=== PATIENT | female | born 1990 ===

== ENCOUNTER 2020-08-13 18:48 | Outpatient (REF) | payer OTHER, SELFPAY | END 2020-08-13 18:49 | disposition home or self-care (01) | LOC: HO.LNP 18:48 | PROVIDERS: Visit Provider Hospitalist | DX: Z20.828 Contact with and (suspected) exposure to other viral communicable diseases (principal) | CPT/HCPCS: 87635 ==

== ENCOUNTER 2020-11-11 13:46 | Outpatient (REF) | payer OTHER, SELFPAY ==
--- NOTE | 2020-11-11 13:50 | XR_ITS ---
EXAMINATION: XR CHEST CLINICAL INFORMATION: Shortness of breath COMPARISON: Chest 12/03/2018 TECHNIQUE: 2 views of the chest were obtained. FINDINGS: The lungs are expanded and clear of acute process. The heart size and pulmonary vascularity is normal. There is moderate dextroscoliosis of dorsal spine. No lytic process. XR/XR chest 2V IMPRESSION: Unremarkable chest exam. Moderate dextroscoliosis dorsal spine.
== END 2020-11-11 13:47 | disposition home or self-care (01) ==
LOC: HO.HMGCX 13:46
PROVIDERS: PCP Nurse Practitioner Family; Visit Provider Internal Medicine
DX: R06.02 Shortness of breath (principal)
CPT/HCPCS: 71046

== ENCOUNTER 2021-12-06 07:30 | Outpatient (REF) | payer OTHER, SELFPAY ==
[2021-12-06 11:19] LABS: MANUAL DIFF FLAG NO
[2021-12-06 11:35] LABS: Basophils Percent Auto 0.7 % (0-2); Eosinophils Absolute Auto 0.1 X10*3/uL (0.0-0.4); Eosinophils Percent Auto 3.1 % (0-4); Hematocrit 41.4 % (37.0-47.0); Hemoglobin 13.8 g/dl (12.0-16.0); Lymphocytes Absolute Auto 2.2 X10*3/uL (1.2-4.9); Lymphocytes Percent Auto 52.7 % (20-40); Mean Corpuscular HGB Conc 33.3 g/dl (31.0-35.0); Mean Corpuscular Hemoglobin 28.7 pg (27.0-33.0); Mean Corpuscular Volume 86.1 fL (80.0-98.0); Mean Platelet Volume 8.9 fL (9.4-12.3); Monocytes Absolute Auto 0.3 X10*3/uL (0.1-1.2); Monocytes Percent Auto 6.1 % (2-11); Neutrophils Absolute Auto 1.6 x10*3/uL (2.0-8.3); Neutrophils Percent Auto 37.4 % (45-73); Platelet Count 271 X10*3/uL (160-400); Red Blood Count 4.81 X10*6/uL (4.20-5.50); Red Cell Distribution Width 12.3 % (11.0-16.0); White Blood Count 4.3 X10*3/uL (4.8-10.8)
[2021-12-06 12:06] LABS: Alanine Aminotransferase 13 U/L (0-31); Albumin Level 4.1 g/dL (3.5-5.0); Alkaline Phosphatase 51 U/L (39-117); Anion Gap 12 (12-20); Aspartate Amino Transferase 12 U/L (5-31); Bilirubin Total 0.6 mg/dL (0.0-1.0); Blood Urea Nitrogen 14 mg/dL (9-16); Calcium 9.8 mg/dL (8.4-10.2); Carbon Dioxide 26 mmol/L (22-29); Chloride 107 mmol/L (96-108); Cholesterol 255 mg/dL; Estimated Glomerular Filt Rate > 60; Glucose Fasting 75 mg/dL (60-99); HDL Cholesterol 66 mg/dL; LDL Cholesterol Calculated 153 mg/dl; Potassium 4.1 mmol/L (3.3-5.1); Sodium 141 mmol/L (135-145); Total Protein 7.3 g/dL (6.5-8.0); Triglycerides 183 mg/dL
[2021-12-06 12:07] LABS: TSH reflex Free T4 1.85 uIU/mL (0.32-4.0)
[2021-12-09 18:36] LABS: Lamotrigine Lamictal 3.4 mcg/mL (4.0-18.0)
== END 2021-12-06 07:31 | disposition home or self-care (01) ==
LOC: HO.HMGCLDS 07:30
PROVIDERS: Visit Provider Nurse Practitioner Family
DX: Z00.00 Encounter for general adult medical examination without abnormal findings (principal); R42 Dizziness and giddiness
CPT/HCPCS: 36415; 80053; 80061; 80175; 84443; 85025

== ENCOUNTER 2022-01-11 07:29 | Outpatient (REF) | payer OTHER, SELFPAY ==
[2022-01-11 11:03] LABS: MANUAL DIFF FLAG NO
[2022-01-11 11:14] LABS: Basophils Percent Auto 0.4 % (0-2); Eosinophils Absolute Auto 0.1 X10*3/uL (0.0-0.4); Hematocrit 39.7 % (37.0-47.0); Hemoglobin 12.9 g/dl (12.0-16.0); Lymphocytes Absolute Auto 2.4 X10*3/uL (1.2-4.9); Lymphocytes Percent Auto 50.4 % (20-40); Mean Corpuscular HGB Conc 32.5 g/dl (31.0-35.0); Mean Corpuscular Hemoglobin 28.3 pg (27.0-33.0); Mean Corpuscular Volume 87.1 fL (80.0-98.0); Mean Platelet Volume 8.9 fL (9.4-12.3); Monocytes Absolute Auto 0.4 X10*3/uL (0.1-1.2); Monocytes Percent Auto 8.8 % (2-11); Neutrophils Absolute Auto 1.7 x10*3/uL (2.0-8.3); Neutrophils Percent Auto 37.4 % (45-73); Platelet Count 243 X10*3/uL (160-400); Red Blood Count 4.56 X10*6/uL (4.20-5.50); Red Cell Distribution Width 12.6 % (11.0-16.0); White Blood Count 4.7 X10*3/uL (4.8-10.8)
[2022-01-11 12:06] LABS: Alanine Aminotransferase 13 U/L (0-31); Albumin Level 3.9 g/dL (3.5-5.0); Alkaline Phosphatase 45 U/L (39-117); Anion Gap 10 (12-20); Aspartate Amino Transferase 13 U/L (5-31); Bilirubin Total 0.5 mg/dL (0.0-1.0); Blood Urea Nitrogen 17 mg/dL (9-16); Calcium 9.3 mg/dL (8.4-10.2); Carbon Dioxide 26 mmol/L (22-29); Chloride 106 mmol/L (96-108); Cholesterol 236 mg/dL; Estimated Glomerular Filt Rate > 60; Glucose Fasting 86 mg/dL (60-99); HDL Cholesterol 69 mg/dL; LDL Cholesterol Calculated 137 mg/dl; Potassium 4.1 mmol/L (3.3-5.1); Sodium 138 mmol/L (135-145); Total Protein 6.6 g/dL (6.5-8.0); Triglycerides 151 mg/dL
== END 2022-01-11 07:30 | disposition home or self-care (01) ==
LOC: HO.HMGCLDS 07:29
PROVIDERS: Visit Provider Nurse Practitioner Family
DX: E78.5 Hyperlipidemia, unspecified (principal)
CPT/HCPCS: 36415; 80053; 80061; 85025

== ENCOUNTER 2022-04-15 08:58 | Outpatient (REF) | payer OTHER, SELFPAY ==
[2022-04-15 10:58] LABS: MANUAL DIFF FLAG NO
[2022-04-15 10:59] LABS: Basophils Percent Auto 0.6 % (0-2); Eosinophils Absolute Auto 0.1 X10*3/uL (0.0-0.4); Eosinophils Percent Auto 2.3 % (0-4); Hematocrit 40.7 % (37.0-47.0); Hemoglobin 13.5 g/dl (12.0-16.0); Imm Gran Abs Auto 0.01 X10*3/uL (0.00-0.03); Imm Gran Pct Auto 0.2 % (0.0-0.4); Lymphocytes Absolute Auto 2.1 X10*3/uL (1.2-4.9); Lymphocytes Percent Auto 40.7 % (20-40); Mean Corpuscular HGB Conc 33.2 g/dl (31.0-35.0); Mean Corpuscular Hemoglobin 28.8 pg (27.0-33.0); Mean Corpuscular Volume 86.8 fL (80.0-98.0); Mean Platelet Volume 8.9 fL (9.4-12.3); Monocytes Absolute Auto 0.4 X10*3/uL (0.1-1.2); Monocytes Percent Auto 7.4 % (2-11); Neutrophils Absolute Auto 2.5 x10*3/uL (2.0-8.3); Neutrophils Percent Auto 48.8 % (45-73); Platelet Count 252 X10*3/uL (160-400); Red Blood Count 4.69 X10*6/uL (4.20-5.50); Red Cell Distribution Width 12.5 % (11.0-16.0); White Blood Count 5.1 X10*3/uL (4.8-10.8)
[2022-04-15 11:27] LABS: Alanine Aminotransferase 15 U/L (0-31); Albumin Level 3.9 g/dL (3.5-5.0); Alkaline Phosphatase 52 U/L (39-117); Anion Gap 11 (12-20); Aspartate Amino Transferase 13 U/L (5-31); Bilirubin Total 0.5 mg/dL (0.0-1.0); Blood Urea Nitrogen 14 mg/dL (9-16); Calcium 9.4 mg/dL (8.4-10.2); Carbon Dioxide 26 mmol/L (22-29); Chloride 106 mmol/L (96-108); Cholesterol 231 mg/dL; Estimated Glomerular Filt Rate > 60; Glucose Fasting 84 mg/dL (60-99); HDL Cholesterol 67 mg/dL; LDL Cholesterol Calculated 136 mg/dl; Potassium 4.6 mmol/L (3.3-5.1); Sodium 138 mmol/L (135-145); Total Protein 6.8 g/dL (6.5-8.0); Triglycerides 142 mg/dL
== END 2022-04-15 08:59 | disposition home or self-care (01) ==
LOC: HO.HMGCLDS 08:58
PROVIDERS: PCP Nurse Practitioner Family; Visit Provider Nurse Practitioner Family
DX: E78.5 Hyperlipidemia, unspecified (principal)
CPT/HCPCS: 36415; 80053; 80061; 84443; 85025

== ENCOUNTER → 2022-05-10 08:54 | Outpatient (BNVA) | payer OTHER, SELFPAY | PROVIDERS: PCP Nurse Practitioner Family; Visit Provider Dietitian, Registered | DX: E66.9 Obesity, unspecified (principal); Z68.28 Body mass index [BMI] 28.0-28.9, adult | CPT/HCPCS: 97802 ==

== ENCOUNTER 2022-07-12 10:16 | Outpatient (REF) | payer OTHER, SELFPAY ==
[2022-07-12 11:09] LABS: MANUAL DIFF FLAG NO
[2022-07-12 11:16] LABS: Basophils Percent Auto 0.7 % (0-2); Eosinophils Absolute Auto 0.1 X10*3/uL (0.0-0.4); Eosinophils Percent Auto 1.4 % (0-4); Hematocrit 39.1 % (37.0-47.0); Hemoglobin 13.1 g/dl (12.0-16.0); Imm Gran Abs Auto 0.01 X10*3/uL (0.00-0.03); Imm Gran Pct Auto 0.2 % (0.0-0.4); Lymphocytes Percent Auto 33.5 % (20-40); Mean Corpuscular HGB Conc 33.5 g/dl (31.0-35.0); Mean Corpuscular Hemoglobin 28.5 pg (27.0-33.0); Mean Corpuscular Volume 85.2 fL (80.0-98.0); Mean Platelet Volume 8.8 fL (9.4-12.3); Monocytes Absolute Auto 0.4 X10*3/uL (0.1-1.2); Neutrophils Absolute Auto 3.4 x10*3/uL (2.0-8.3); Neutrophils Percent Auto 57.2 % (45-73); Platelet Count 273 X10*3/uL (160-400); Red Blood Count 4.59 X10*6/uL (4.20-5.50); Red Cell Distribution Width 12.4 % (11.0-16.0); White Blood Count 5.9 X10*3/uL (4.8-10.8)
[2022-07-12 11:23] LABS: INTERNATIONAL NORM RATIO 0.9 (0.9-1.1)
[2022-07-13 17:36] LABS: Follicle Stimulating Hormone 7.6 mIU/mL; Lutenizing Hormone 7.4 mIU/mL
[2022-07-16 09:41] LABS: Lamotrigine Lamictal 6.1 mcg/mL (4.0-18.0)
[2022-07-20 22:11] LABS: Estradiol Free 2.31 pg/mL; Estradiol, Ultrasensitive 203 pg/mL
== END 2022-07-12 10:17 | disposition home or self-care (01) ==
LOC: HO.HMGCLDS 10:16
PROVIDERS: PCP Nurse Practitioner Family; Visit Provider Nurse Practitioner Family
DX: R23.8 Other skin changes (principal); F33.2 Major depressive disorder, recurrent severe without psychotic features; Z79.899 Other long term (current) drug therapy
CPT/HCPCS: 36415; 80175; 82670; 82672; 82681; 83001; 83002; 85025; 85610; 85730

== ENCOUNTER 2022-08-24 14:56 | Outpatient (REF) | payer OTHER, SELFPAY ==
[2022-08-24 16:52] LABS: MANUAL DIFF FLAG NO
[2022-08-24 16:56] LABS: Basophils Percent Auto 0.6 % (0-2); Eosinophils Absolute Auto 0.1 X10*3/uL (0.0-0.4); Eosinophils Percent Auto 1.7 % (0-4); Hematocrit 37.4 % (37.0-47.0); Hemoglobin 12.6 g/dl (12.0-16.0); Imm Gran Abs Auto 0.01 X10*3/uL (0.00-0.03); Imm Gran Pct Auto 0.2 % (0.0-0.4); Lymphocytes Percent Auto 46.8 % (20-40); Mean Corpuscular HGB Conc 33.7 g/dl (31.0-35.0); Mean Corpuscular Hemoglobin 28.9 pg (27.0-33.0); Mean Corpuscular Volume 85.8 fL (80.0-98.0); Mean Platelet Volume 8.9 fL (9.4-12.3); Monocytes Absolute Auto 0.5 X10*3/uL (0.1-1.2); Monocytes Percent Auto 8.2 % (2-11); Neutrophils Absolute Auto 2.7 x10*3/uL (2.0-8.3); Neutrophils Percent Auto 42.5 % (45-73); Platelet Count 253 X10*3/uL (160-400); Red Blood Count 4.36 X10*6/uL (4.20-5.50); Red Cell Distribution Width 12.5 % (11.0-16.0); White Blood Count 6.4 X10*3/uL (4.8-10.8)
[2022-08-24 17:43] LABS: Alanine Aminotransferase 14 U/L (0-31); Alkaline Phosphatase 57 U/L (39-117); Anion Gap 15 (12-20); Aspartate Amino Transferase 13 U/L (5-31); Bilirubin Total 0.4 mg/dL (0.0-1.0); Blood Urea Nitrogen 18 mg/dL (9-16); Calcium 9.2 mg/dL (8.4-10.2); Carbon Dioxide 25 mmol/L (22-29); Chloride 101 mmol/L (96-108); Cholesterol 223 mg/dL; Estimated Glomerular Filt Rate > 60; Glucose Fasting 91 mg/dL (60-99); HDL Cholesterol 71 mg/dL; LDL Cholesterol Calculated 129 mg/dl; Potassium 4.8 mmol/L (3.3-5.1); Sodium 136 mmol/L (135-145); Total Protein 6.9 g/dL (6.5-8.0); Triglycerides 117 mg/dL
[2022-08-24 18:06] LABS: TSH reflex Free T4 1.12 uIU/mL (0.32-4.0)
[2022-09-01 21:26] LABS: Estradiol Free 2.05 pg/mL; Estradiol, Ultrasensitive 162 pg/mL
== END 2022-08-24 14:57 | disposition home or self-care (01) ==
LOC: HO.HMGCLDS 14:56
PROVIDERS: PCP Nurse Practitioner Family; Visit Provider Nurse Practitioner Family
DX: F33.2 Major depressive disorder, recurrent severe without psychotic features (principal); E28.0 Estrogen excess
CPT/HCPCS: 36415; 80053; 80061; 82670; 82672; 82681; 84443; 85025

== ENCOUNTER 2023-01-08 17:08 | Outpatient (REF) | payer OTHER, SELFPAY ==
[2023-01-08 18:12] LABS: Influenza A PCR NEGATIVE (Negative); Influenza B PCR NEGATIVE (Negative); Resp Syncy Virus RNA Qual PCR NEGATIVE (Negative); SARS COV2 PCR INHOUSE NEGATIVE (Negative)
== END 2023-01-08 17:09 | disposition home or self-care (01) ==
LOC: HO.LNP 17:08
PROVIDERS: Visit Provider Nurse Practitioner Family
DX: Z20.822 Contact with and (suspected) exposure to COVID-19 (principal); R09.89 Other specified symptoms and signs involving the circulatory and respiratory systems
CPT/HCPCS: 0241U

== ENCOUNTER 2023-03-15 14:55 | Outpatient (REF) | payer OTHER, SELFPAY ==
[2023-03-15 16:29] LABS: MANUAL DIFF FLAG NO
[2023-03-15 16:34] LABS: Basophils Percent Auto 0.5 % (0-2); Eosinophils Absolute Auto 0.1 X10*3/uL (0.0-0.4); Eosinophils Percent Auto 1.3 % (0-4); Hematocrit 40.6 % (37.0-47.0); Hemoglobin 13.5 g/dl (12.0-16.0); Imm Gran Abs Auto 0.01 X10*3/uL (0.00-0.03); Imm Gran Pct Auto 0.2 % (0.0-0.4); Lymphocytes Absolute Auto 2.6 X10*3/uL (1.2-4.9); Mean Corpuscular HGB Conc 33.3 g/dl (31.0-35.0); Mean Corpuscular Volume 84.2 fL (80.0-98.0); Mean Platelet Volume 8.8 fL (9.4-12.3); Monocytes Absolute Auto 0.4 X10*3/uL (0.1-1.2); Monocytes Percent Auto 7.2 % (2-11); Neutrophils Percent Auto 48.8 % (45-73); Platelet Count 306 X10*3/uL (160-400); Red Blood Count 4.82 X10*6/uL (4.20-5.50); Red Cell Distribution Width 12.1 % (11.0-16.0); White Blood Count 6.1 X10*3/uL (4.8-10.8)
[2023-03-15 16:51] LABS: Alanine Aminotransferase 15 U/L (0-31); Albumin Level 4.2 g/dL (3.5-5.0); Alkaline Phosphatase 64 U/L (39-117); Anion Gap 12 (12-20); Aspartate Amino Transferase 14 U/L (5-31); Bilirubin Total 0.6 mg/dL (0.0-1.0); Blood Urea Nitrogen 10 mg/dL (9-16); C Reactive Protein 0.28 mg/dL (< or = 0.50); Calcium 9.6 mg/dL (8.4-10.2); Carbon Dioxide 26 mmol/L (22-29); Chloride 104 mmol/L (96-108); Estimated Glomerular Filt Rate > 60; Glucose Random 83 mg/dL (60-115); Potassium 4.2 mmol/L (3.3-5.1); Sodium 138 mmol/L (135-145)
[2023-03-15 17:14] LABS: Erythrocyte Sedimentation Rate 9 MM/HR (0-20)
[2023-03-15 17:22] LABS: Folate 11.5 ng/mL (> or = 4.0); Vitamin B12 850 pg/mL (200-900)
[2023-03-19 23:48] LABS: A. Phagocytphilium DNA,RT-PCR NOT DETECTED (NOT DETECTED); Babesia Microti DNA, RT-PCR NOT DETECTED (NOT DETECTED); Borrelia Miyamotoi,DNA RT-PCR NOT DETECTED (NOT DETECTED); E.Chaffeensis DNA RT-PCR NOT DETECTED (NOT DETECTED); Lyme(Borrelia ssp)DNA RT-PCR NOT DETECTED (NOT DETECTED)
== END 2023-03-15 14:56 | disposition home or self-care (01) ==
LOC: HO.HMGCLDS 14:55
PROVIDERS: PCP Nurse Practitioner Family; Visit Provider Nurse Practitioner Family
DX: M79.10 Myalgia, unspecified site (principal)
CPT/HCPCS: 36415; 80053; 82550; 82607; 82746; 85025; 85652; 86140; 87798; 87801

== ENCOUNTER 2023-04-18 14:53 | Outpatient (REF) | payer OTHER, SELFPAY ==
[2023-04-18 16:33] LABS: MANUAL DIFF FLAG NO
[2023-04-18 17:48] LABS: Basophils Percent Auto 0.5 % (0-2); Eosinophils Absolute Auto 0.1 X10*3/uL (0.0-0.4); Eosinophils Percent Auto 1.4 % (0-4); Hematocrit 38.6 % (37.0-47.0); Hemoglobin 13.1 g/dl (12.0-16.0); Imm Gran Abs Auto 0.01 X10*3/uL (0.00-0.03); Imm Gran Pct Auto 0.2 % (0.0-0.4); Lymphocytes Absolute Auto 2.6 X10*3/uL (1.2-4.9); Lymphocytes Percent Auto 40.5 % (20-40); Mean Corpuscular HGB Conc 33.9 g/dl (31.0-35.0); Mean Corpuscular Hemoglobin 28.7 pg (27.0-33.0); Mean Corpuscular Volume 84.6 fL (80.0-98.0); Mean Platelet Volume 8.8 fL (9.4-12.3); Monocytes Absolute Auto 0.5 X10*3/uL (0.1-1.2); Monocytes Percent Auto 7.1 % (2-11); Neutrophils Absolute Auto 3.2 x10*3/uL (2.0-8.3); Neutrophils Percent Auto 50.3 % (45-73); Platelet Count 306 X10*3/uL (160-400); Red Blood Count 4.56 X10*6/uL (4.20-5.50); Red Cell Distribution Width 12.4 % (11.0-16.0); White Blood Count 6.4 X10*3/uL (4.8-10.8)
[2023-04-18 18:11] LABS: Alanine Aminotransferase 14 U/L (0-31); Albumin Level 3.9 g/dL (3.5-5.0); Alkaline Phosphatase 71 U/L (39-117); Anion Gap 12 (12-20); Aspartate Amino Transferase 13 U/L (5-31); Bilirubin Total 0.5 mg/dL (0.0-1.0); Blood Urea Nitrogen 10 mg/dL (9-16); Calcium 8.9 mg/dL (8.4-10.2); Carbon Dioxide 25 mmol/L (22-29); Chloride 106 mmol/L (96-108); Estimated Glomerular Filt Rate > 60; Glucose Random 84 mg/dL (60-115); Potassium 4.5 mmol/L (3.3-5.1); Sodium 138 mmol/L (135-145)
[2023-04-18 18:27] LABS: TSH reflex Free T4 0.89 uIU/mL (0.32-4.0)
[2023-04-18 19:56] LABS: Monotest Negative (Negative)
== END 2023-04-18 14:54 | disposition home or self-care (01) ==
LOC: HO.HMGCLDS 14:53
PROVIDERS: PCP Nurse Practitioner Family; Visit Provider Nurse Practitioner Family
DX: Z00.00 Encounter for general adult medical examination without abnormal findings (principal); J02.9 Acute pharyngitis, unspecified; E66.9 Obesity, unspecified
CPT/HCPCS: 36415; 80053; 84443; 85025; 86308

== ENCOUNTER 2023-05-04 09:14 | Outpatient (REF) | payer OTHER, SELFPAY ==
[2023-05-04 11:22] LABS: MANUAL DIFF FLAG NO
[2023-05-04 11:27] LABS: Basophils Percent Auto 0.6 % (0-2); Eosinophils Absolute Auto 0.2 X10*3/uL (0.0-0.4); Eosinophils Percent Auto 2.7 % (0-4); Hematocrit 40.6 % (37.0-47.0); Hemoglobin 13.5 g/dl (12.0-16.0); Imm Gran Abs Auto 0.02 X10*3/uL (0.00-0.03); Imm Gran Pct Auto 0.3 % (0.0-0.4); Lymphocytes Absolute Auto 2.4 X10*3/uL (1.2-4.9); Lymphocytes Percent Auto 37.4 % (20-40); Mean Corpuscular HGB Conc 33.3 g/dl (31.0-35.0); Mean Corpuscular Hemoglobin 28.5 pg (27.0-33.0); Mean Corpuscular Volume 85.8 fL (80.0-98.0); Mean Platelet Volume 8.9 fL (9.4-12.3); Monocytes Absolute Auto 0.6 X10*3/uL (0.1-1.2); Monocytes Percent Auto 9.8 % (2-11); Neutrophils Absolute Auto 3.1 x10*3/uL (2.0-8.3); Neutrophils Percent Auto 49.2 % (45-73); Platelet Count 288 X10*3/uL (160-400); Red Blood Count 4.73 X10*6/uL (4.20-5.50); Red Cell Distribution Width 12.6 % (11.0-16.0); White Blood Count 6.3 X10*3/uL (4.8-10.8)
== END 2023-05-04 09:15 | disposition home or self-care (01) ==
LOC: HO.HMGCLDS 09:14
PROVIDERS: PCP Nurse Practitioner Family; Visit Provider Physician Assistant Medical
DX: J02.9 Acute pharyngitis, unspecified (principal)
CPT/HCPCS: 36415; 85025

== ENCOUNTER 2023-05-22 07:10 | Outpatient (AMB) | payer OTHER, SELFPAY ==
--- NOTE | 2023-05-22 07:25 | MHC.PC.OV ---
Intake Visit Reasons: follow up from the walk-in Allergies No Known Allergies [No Known Allergies*] Allergy (Verified 05/04/23 08:40) Tobacco use date assessed: 03/29/23 HPI follow up from the walk-in HPI Details Pt reports that she has started working out again. She reports that she has not been losing weight. Will have pt continue to work on her diet and exercise for 2 months and follow up with me. Denies fever, chills, and dizziness. otitis media and pharyngitis is much better [facility] Medical History Anxiety and depression Pannus, abdominal Seizures Stenosis of left carotid artery Surgical History History of section History of total hysterectomy Family History Father No problems noted. Mother No problems noted. Brother No problems noted. Sister No problems noted. Daughter No problems noted. Son No problems noted. Maternal Grandmother Diabetes mellitus HTN (hypertension) Maternal Grandfather HTN (hypertension) Paternal Grandfather HTN (hypertension) Paternal Grandmother HTN (hypertension) Stroke Social History Housing: House Alcohol intake: never Patient Tobacco Use Status: Never used Tobacco e-Cigarette/Vaping Use: Never Used Second Hand Smoke Exposure: No service: No Current occupational status: employed Current occupation: [employer] Current occupational exposures/hazards: Yes Cognitive needs: No Hearing needs: No Vision needs: No Questionnaire Thrive Questionnaire Date Thrive assessed: 03/29/23 RADHA-7 AMB Questionnaire RADHA-7 Date RADHA - 7 assessed: 03/29/23 Source: Developed by Drs. Arpan Richmond, Alysha Mitchell, Iván Pinto and colleagues, with an educational bharathi from [employer]. Review of Systems Const Reports as per HPI Physical exam (Primary Care) Tobacco/Smoking Status: Tobacco use Status Tobacco use date assessed 03/29/23 03/29/23 16:36 Patient Tobacco Use Status Never used Tobacco 05/04/23 08:39 e-Cigarette/Vaping Use Never Used 03/29/23 16:36 Thrive Assessment: Date of Thrive Assessment Date Thrive assessed 03/29/23 04/12/23 08:45 Const General: cooperative Orientation/consciousness: patient oriented x3 Neuro General: patient oriented x3 Psych Appearance: grossly normal Mental Status: mental status grossly normal Speech and movement: Clear speech present Affect: normal affect Attitude: cooperative Thought process: Normal thought process present Thought content: Normal thought content present Insight: Good insight present (Psych) Judgement: Good judgement present (Psych) Telehealth Telehealth Location of provider rendering services: practice address Location of patient: address on file Patient Identification confirmed using: Name, : Yes Telehealth method: voice only Patient verbally consented to treatment: Yes Patient verbally consented to billing insurance company: Yes Patient informed of any privacy concerns related to visit: Yes Minutes spent on Phone/Video with Pt.: 15 Assessment and Plan Assessment & Plan (1) Pharyngitis: Code(s): J02.9 - Acute pharyngitis, unspecified (2) Otitis media: Code(s): H66.90 - Otitis media, unspecified, unspecified ear Plan The patient agreed to the use of a medical billing coordinator for this encounter. Scribed for DOMINICK Copeland by Olena Almonte medical billing coordinator, on 05/22/2023 at 07:25 EST. Coding Level of Care Code Tele Est Pt Level 3 (61558) Diagnoses Pharyngitis J02.9 Otitis media H66.90
== END 2023-05-22 07:34 | disposition home or self-care (01) ==
PROVIDERS: PCP Nurse Practitioner Family; Visit Provider Nurse Practitioner Family
DX: J02.9 Acute pharyngitis, unspecified (principal); H66.90 Otitis media, unspecified, unspecified ear
CPT/HCPCS: 99442

== ENCOUNTER 2023-07-31 08:19 | Outpatient (AMB) | payer OTHER, SELFPAY ==
[2023-07-31 08:29] VITALS: BP 112/70; PULSE 80; O2SAT 99
--- NOTE | 2023-07-31 08:29 | A.OFFPC_ITS ---
Vital Signs 07/31/23 08:29 Height 5 ft 5 in Weight 180 lb 5 oz BMI 30.0 BP 112/70 Blood Pressure Location Rt brachial Position Sitting Pulse 80 Pulse Source Pulse Oximeter Pulse Oximetry (%) 99 Oxygen Delivery Method Room Air Intake Visit Reasons: 4 month follow up Depression/Anxiety Allergies No Known Allergies [No Known Allergies*] Allergy (Verified 07/31/23 08:31) Medication List - Last Reconciled 07/31/23 by DOMINICK Winter albuterol sulfate 90 mcg/actuation (Ventolin HFA) 1 inh inhalation QID PRN 10 days biotin (Hair, Skin and Nails (biotin)) mcg PO calcium carbonate 1,000 mg PO DAILY epinephrine (EpiPen 2-Carter) 0.3 mg (0.3 mL) IM Q10M PRN 30 days estradiol 2 mg PO BID hydroxyzine HCl 10 mg PO BID PRN 30 days lamotrigine 200 mg PO BID mecobalamin (vitamin B12) mcg PO Tobacco use date assessed: 07/31/23 Dental Screening Dental Screen Date: 07/31/23 Did you have a dental visit in the last 12 months?: Yes Did you have a dental problem in the last 6 months where you did not have access to dental care?: No Was dental information given to patient?: Patient has dentist HPI 4 month follow up Depression/Anxiety HPI Details Anxiety/depression: Pt is taking hydroxyzine 10mg prn for anxiety. She reports that these help. Pt is doing well overall. Denies any SI and HI. Dyslipidemia: Will order labs. [facility] Medical History Anxiety and depression Stenosis of left carotid artery Seizures Pannus, abdominal Surgical History History of total hysterectomy History of section Family History Father No problems noted. Mother No problems noted. Brother No problems noted. Sister No problems noted. Daughter No problems noted. Son No problems noted. Maternal Grandmother Diabetes mellitus HTN (hypertension) Maternal Grandfather HTN (hypertension) Paternal Grandfather HTN (hypertension) Paternal Grandmother HTN (hypertension) Stroke Social History Housing: House Alcohol intake: never Patient Tobacco Use Status: Never used Tobacco e-Cigarette/Vaping Use: Never Used Second Hand Smoke Exposure: No service: No Current occupational status: employed Current occupation: [employer] Current occupational exposures/hazards: Yes Cognitive needs: No Hearing needs: No Vision needs: No Questionnaire Thrive Questionnaire Date Thrive assessed: 03/29/23 RADHA-7 AMB Questionnaire RADHA-7 Date RADHA - 7 assessed: 03/29/23 Source: Developed by Drs. Arpan Richmond, Alysha Mitchell, Iván Pinto and colleagues, with an educational bharathi from [employer]. Review of Systems Const Reports as per HPI Physical exam (Primary Care) Vital Signs: Last Vital Signs Pulse 80 07/31/23 08:29 BP 112/70 07/31/23 08:29 Pulse Ox 99 07/31/23 08:29 Oxygen Delivery Method Room Air 07/31/23 08:29 BMI result Body Mass Index 30.0 Tobacco/Smoking Status: Tobacco use Status Tobacco use date assessed 07/31/23 07/31/23 08:36 Patient Tobacco Use Status Never used Tobacco 07/31/23 08:36 e-Cigarette/Vaping Use Never Used 07/31/23 08:36 Thrive Assessment: Date of Thrive Assessment Date Thrive assessed 03/29/23 07/31/23 08:36 Const General: cooperative Orientation/consciousness: patient oriented x3 Resp Effort & Inspection: normal respiratory effort Auscultation: clear to auscultation bilaterally Cardio Rate: regular rate Rhythm: regular rhythm Heart sounds: S1 normal heart sound present and S2 normal heart sound present Neuro General: patient oriented x3 Psych Appearance: grossly normal Mental Status: mental status grossly normal Speech and movement: Normal speech and movement present Affect: normal affect Attitude: cooperative Thought process: Normal thought process present Thought content: Normal thought content present Insight: Good insight present (Psych) Judgement: Good judgement present (Psych) Assessment and Plan Assessment & Plan (1) Dyslipidemia: Code(s): E78.5 - Hyperlipidemia, unspecified Plan: Labs ordered (2) Depression, major, severe recurrence: Code(s): F33.2 - Major depressive disorder, recurrent severe without psychotic features Plan: Labs ordered (3) Anxiety: Code(s): F41.9 - Anxiety disorder, unspecified Plan: Labs ordered Plan The patient agreed to the use of a medical records library professor for this encounter. Scribed for Tucker Haley RADIOTELEPHONE OPERATOR- by Olena Almonte medical records library professor, on 07/31/2023 at 08:45 EST. Orders: Orders UA CC w/rflx Micro + Cult Today E78.5 - Hyperlipidemia, unspecified, F33.2 - Major depressive disorder, recurrent severe without psychotic features, F41.9 - Anxiety disorder, unspecified Complete Blood Count Auto Diff Today E78.5 - Hyperlipidemia, unspecified, F33.2 - Major depressive disorder, recurrent severe without psychotic features, F41.9 - Anxiety disorder, unspecified Comprehensive [place]. Panel Fast Today E78.5 - Hyperlipidemia, unspecified, F33.2 - Major depressive disorder, recurrent severe without psychotic features, F41.9 - Anxiety disorder, unspecified TSH reflex Free T4 Today E78.5 - Hyperlipidemia, unspecified, F33.2 - Major depressive disorder, recurrent severe without psychotic features, F41.9 - Anxiety disorder, unspecified Lipid Panel Today E78.5 - Hyperlipidemia, unspecified, F33.2 - Major depressive disorder, recurrent severe without psychotic features, F41.9 - Anxiety disorder, unspecified Medications: Refilled hydroxyzine HCl 10 mg PO BID 30 days PRN 60 tabs 0RF anxiety Coding Level of Care Code Est Pt Level 3 (84449) Diagnoses Dyslipidemia E78.5 Depression, major, severe recurrence F33.2 Anxiety F41.9
== END 2023-07-31 09:07 | disposition home or self-care (01) ==
PROVIDERS: PCP Nurse Practitioner Family; Visit Provider Nurse Practitioner Family
DX: E78.5 Hyperlipidemia, unspecified (principal); F33.2 Major depressive disorder, recurrent severe without psychotic features; F41.9 Anxiety disorder, unspecified
CPT/HCPCS: 99213

== ENCOUNTER 2023-09-26 14:55 | Outpatient (REF) | payer OTHER, SELFPAY ==
--- NOTE | ~2023-09-26 | XR_ITS ---
EXAMINATION: XR LUMBOSACRAL SPINE CLINICAL INFORMATION: Low back pain unspecified. COMPARISON: None available. TECHNIQUE: Three views of the lumbosacral spine. FINDINGS: Mild levoscoliosis of the lumbar spine with rotatory component. Straightening of the normal lumbar lordosis. Moderate degenerative changes in the bilateral sacroiliac joints. Facet arthritis in the lower lumbar spine. Multilevel lumbar spondylosis with moderate loss of disc space height at L4-L5. XR/XR lumbar spine 2-3V IMPRESSION: Multilevel lumbar spondylosis.
== END 2023-09-26 14:56 | disposition home or self-care (01) ==
LOC: HO.HMGCX 14:55
PROVIDERS: PCP Nurse Practitioner Family; Visit Provider Nurse Practitioner Family
DX: M54.50 Low back pain, unspecified (principal)
CPT/HCPCS: 72100

== ENCOUNTER 2023-10-08 08:52 | Outpatient (AMB) | payer OTHER, SELFPAY ==
--- NOTE | 2023-10-08 08:55 | A.OFFPC_ITS ---
Vital Signs 10/08/23 08:57 Height 5 ft 5 in Weight 181 lb BMI 30.1 BP 130/90 H Blood Pressure Location Lt brachial Position Sitting Pulse 89 Pulse Source Pulse Oximeter Pulse Oximetry (%) 99 Oxygen Delivery Method Room Air Intake Visit Reasons: Back pain Intake Note: Patient here for back pain that has been present for a long time . Allergies No Known Allergies [No Known Allergies*] Allergy (Verified 10/08/23 08:58) Medication List - Last Reconciled 10/08/23 by DOMINICK Winter albuterol sulfate 90 mcg/actuation (Ventolin HFA) 1 inh inhalation QID PRN 10 days biotin (Hair, Skin and Nails (biotin)) mcg PO calcium carbonate 1,000 mg PO DAILY epinephrine (EpiPen 2-Carter) 0.3 mg (0.3 mL) IM Q10M PRN 30 days estradiol 2 mg PO BID hydroxyzine HCl 10 mg PO BID PRN 30 days lamotrigine 200 mg PO BID mecobalamin (vitamin B12) mcg PO Tobacco use date assessed: 07/31/23 HPI Back pain HPI Details Pt c/o lower back pain. She reports pain down her BLE as well (mostly left lower extrem, anterior and posterior radiculopathy). Recent XR showed multilevel lumbar spondylosis (please see results). Will refer to PT. Denies any signs of cauda equina. If PT does not help, will order a MRI. nOTE: meloxicam also sent [facility] Medical History Anxiety and depression Stenosis of left carotid artery Seizures Pannus, abdominal Surgical History History of total hysterectomy History of section Family History Father No problems noted. Mother No problems noted. Brother No problems noted. Sister No problems noted. Daughter No problems noted. Son No problems noted. Maternal Grandmother Diabetes mellitus HTN (hypertension) Maternal Grandfather HTN (hypertension) Paternal Grandfather HTN (hypertension) Paternal Grandmother HTN (hypertension) Stroke Housing: House Alcohol intake: never Patient Tobacco Use Status: Never used Tobacco e-Cigarette/Vaping Use: Never Used Second Hand Smoke Exposure: No service: No Current occupational status: employed Current occupation: [employer] Current occupational exposures/hazards: Yes Cognitive needs: No Hearing needs: No Vision needs: No Questionnaire Thrive Questionnaire Date Thrive assessed: 03/29/23 RADHA-7 AMB Questionnaire RADHA-7 Date RADHA - 7 assessed: 03/29/23 Source: Developed by Drs. Arpan Richmond, Alysha Mitchell, Iván Pinto and colleagues, with an educational bharathi from [employer]. Review of Systems Const Reports as per HPI Physical exam (Primary Care) Vital Signs: Last Vital Signs Pulse 89 10/08/23 08:57 BP 130/90 H 10/08/23 08:57 Pulse Ox 99 10/08/23 08:57 Oxygen Delivery Method Room Air 10/08/23 08:57 BMI result Body Mass Index 30.1 Tobacco/Smoking Status: Tobacco use Status Tobacco use date assessed 07/31/23 10/08/23 08:57 Patient Tobacco Use Status Never used Tobacco 10/08/23 08:57 e-Cigarette/Vaping Use Never Used 10/08/23 08:57 Thrive Assessment: Date of Thrive Assessment Date Thrive assessed 03/29/23 10/08/23 08:57 Const General: cooperative Orientation/consciousness: patient oriented x3 Resp Effort & Inspection: normal respiratory effort Auscultation: clear to auscultation bilaterally Cardio Rate: regular rate Rhythm: regular rhythm Heart sounds: S1 normal heart sound present and S2 normal heart sound present Neuro General: patient oriented x3 Psych Appearance: grossly normal Mental Status: mental status grossly normal Speech and movement: Normal speech and movement present Affect: normal affect Attitude: cooperative Thought process: Normal thought process present Thought content: Normal thought content present Insight: Good insight present (Psych) Judgement: Good judgement present (Psych) Assessment and Plan Assessment & Plan (1) Pain of back and lower extremity: Code(s): M54.9 - Dorsalgia, unspecified; M79.609 - Pain in unspecified limb Plan: Referred to PT, meloxicam sent Plan The patient agreed to the use of a medical technologist chemistry for this encounter. Scribed for LEEANNA Copeland-RUCHI by Olena Almonte medical technologist chemistry, on 10/08/2023 at 09:10 EST. Orders: Orders PT Evaluation and Treatment Today M54.9 - Dorsalgia, unspecified, M79.609 - Pain in unspecified limb Medications: New meloxicam 15 mg PO DAILY 30 tabs 0RF Coding Level of Care Code Est Pt Level 3 (36067) Diagnoses Pain of back and lower extremity M54.9; M79.609
[2023-10-08 08:57] VITALS: BP 130/90; PULSE 89; O2SAT 99; BMI 30.1
== END 2023-10-08 15:19 | disposition home or self-care (01) ==
PROVIDERS: PCP Nurse Practitioner Family; Visit Provider Nurse Practitioner Family
DX: M54.9 Dorsalgia, unspecified (principal); M79.609 Pain in unspecified limb
CPT/HCPCS: 99213

== ENCOUNTER 2023-11-23 08:18 | Outpatient (AMB) | payer OTHER, SELFPAY ==
--- OUTSIDE RECORDS SUMMARY | 2023-11-23 08:20 | XMS_ITS | Continuity of Care Document ---
Author Name Unknown Organization [facility] e Medicine Address [address] [place] [address], [address]t [address] [place] [address]- Care Team Providers Care Faculty Head Name Role Phone Jaimie CASTRO, Randa Brennan Primary Care Physician Encounter [facility] ACCT R [id number] Date(s): 09/03/20 - 09/10/20 [facility] Reproductive Medicine [address], [address]th [address] [place] [address]- [facility] Attending Physician: Kimi Diop MD Allergies, Adverse Reactions, Alerts Substance Reaction Severity Status Adhesive Bandage Active Bee Stings Active Medications calcium gummies calcium gummies, Refills 0, Maintenance, 09/15/19 7:45:52 EST, Compound Start Date: 09/15/19 Status: Ordered estradiol 1 mg oral tablet 3, tablet, By Mouth, Daily, # 270 tablet, Refills 4, Tot. Refills 4, Maintenance, 09/03/20 10:19:00EDT, Route to Pharmacy Electronically, [facility]/pharmacy #[id number], Renewing Rx for 1 year--keep on file until patient calls for refill, 165.1, cm, 09/03/20 9:4... Start Date: 09/03/20 Status: Ordered LaMICtal 200 mg oral tablet 1 tablet = 200 mg, By Mouth, 2 times a day, dose increase early refill, # 60 tablet, 11 Refills, Maintenance, 10/07/19 8:49:33 EST, Tablet Start Date: 10/07/19 Status: Ordered Problem List Condition Effective Dates Status Health Status Inform ant Obesity(Confirmed) Active Premenstrual dysphoric disorder(Confirmed) Active Procedures Procedure Date Related Diagnosis Body Site Status MELODY BSO - Total abdominal hy sterectomy and bilateral salpingo-oophorectomy 09/28/15 Completed Bilateral tubal ligation 1 08/04/13 Completed 1@ time of Vital Signs Most recent to oldest [Reference Range]: 1 Height 165.10 cm (09/03/20 9:40 AM) Weight 78.6 kg (09/03/20 9:40 AM) Pulse Rate [55-90 bpm] 100 bpm *H* (09/03/20 9:40 AM) Body Mass Index [18.5-24.99] 28.84 *H* (09/03/20 9:40 AM) Blood Pressure [90-138/55-84 mm Hg] 123/ 84mm Hg (09/03/20 9:40 AM) Blood pressure sites Arm, right (09/03/20 9:40 AM) Weight Obtained Via Standing scale (09/03/20 9:40 AM) Social History Social History Type Response Smoking Status Never smoker entered on: 05/10/15 Sex
--- OUTSIDE RECORDS SUMMARY | 2023-11-23 08:20 | XMS_ITS | Continuity of Care Document ---
Author Name Unknown Organization [facility] e Medicine Address [address] [place] [address], [address]t [address] [place] [address]- Care Team Providers Care Filterer Name Role Phone Randa Etienne NP Primary Care Physician Encounter [facility] Date(s): 11/19/20 - 12/19/20 [facility] Reproductive Medicine [address] [place] [address], [address]th [address] [place] [id number] Allergies, Adverse Reactions, Alerts Substance Reaction Severity Status Adhesive Bandage Active Bee Stings Active Medications calcium gummies calcium gummies, Refills 0, Maintenance, 09/15/19 7:45:52 EST, Compound Start Date: 09/15/19 Status: Ordered Diflucan 150 mg oral tablet 1 tablet = 150 mg, By Mouth, Once, MAY REPEAT IN 3 DAYS IF NO RELIEF, # 2 tablet, 0 Refills, Soft Stop, 10/12/20 12:19:00 EST, Tablet, [facility]/pharmacy #[id number], Partial fill upon patient request if the prescription is for a schedule II opioid drug., 165.1,... Start Date: 10/12/20 Status: Ordered estradiol 1 mg oral tablet 3, tablet, By Mouth, Daily, # 270 tablet, Refills 4, Tot. Refills 4, Maintenance, 09/03/20 10:19:00EDT, Route to Pharmacy Electronically, [facility]/pharmacy #[id number], Renewing Rx for 1 year--keep on file [...] ant Obesity(Confirmed) Active Premenstrual dysphoric disorder(Confirmed) Active Social History Social History Type Response Smoking Status Never smoker entered on: 05/10/15 Sex
--- OUTSIDE RECORDS SUMMARY | 2023-11-23 08:20 | XMS_ITS | Continuity of Care Document ---
Author Name Unknown Organization [facility] ter Address [address] [place] [address]- Care Team Providers Care Big Machine Consultant Name Role Phone Jaimie CASTRO, Randa Brennan Primary Care Physician [phone] [place] [facility] Date(s): 11/18/19 - 11/23/[address] [address]- [facility] Discharge Disposition: A-D/C Home Attending Physician: Stuart Tellez MD Admitting Physician: Abran Buchanan MD Referring Physician: Abran Buchanan MD Allergies, Adverse Reactions, Alerts Substance Reaction Severity Status Adhesive Bandage Active Medications calcium gummies calcium gummies, Refills 0, Maintenance, 09/15/19 7:45:52 EST, Compound Start Date: 09/15/19 Status: Ordered Estrace 2 mg oral tablet 1 tablet = 2 mg, By Mouth, Daily, # 30 tablet, 0 Refills, Maintenance, 07/05/16 8:41:50, Tablet Start Date: 07/05/16 Status: Ordered estradiol 1 mg oral tablet 2 mg, 2, tablet, By Mouth, Daily, May try dividing the dose, # 60 tablet, Refills 11, Tot. Refills 11, Maintenance, 10/07/19 16:40:37 EST, Route to Pharmacy Electronically, [id number], [facility]/pharmacy #[id number] Start Date: 10/07/19 Status: Ordered LaMICtal 200 mg oral tablet 1 tablet = 200 mg, By Mouth, 2 times a day, dose increase early refill, # 60 tablet, 11 Refills, Maintenance, 10/07/19 8:49:33 EST, Tablet Start Date: 10/07/19 Status: Ordered Lamictal 400mg Lamictal 400mg, Refills 0, Maintenance, 09/15/19 7:46:20 EST, Compound Start Date: 09/15/19 Status: Ordered Nortriptyline Liquid By Mouth, takes one ml mixed with 9ml takes 0.7 cc after., 0 Refills, Maintenance, 04/10/17 7:55:19 Start Date: 04/10/17 Status: Ordered Problem List Condition Effective Dates Status Health Status Inform ant Obesity(Confirmed) Active Premenstrual dysphoric disorder(Confirmed) Active Vital Signs Most recent to oldest [Reference Range]: 1 2 3 Height 165.10 cm (11/23/19 7:29 AM) 165.10 cm (11/22/19 11:56 PM) 165.10 cm (11/22/19 8:06 PM) Oxygen Saturation [94-100 %] 98 % (11/23/19 7:29 AM) 100 % (11/22/19 11:56 PM) 100 % (11/22/19 8:06 PM) Pulse Rate [55-90 bpm] 72 bpm (11/23/19 7:29 AM) 81 bpm (11/22/19 11:56 PM) 79 bpm (11/22/19 8:06 PM) Blood Pressure [90-138/55-84 mm Hg] 108/57mm Hg (11/23/19 7:29 AM) 127/77mm Hg (11/22/19 11:56 PM) 114/69mm Hg (11/22/19 8:06 PM) Respiratory Rate [16-30 br/min] 17 br/min (11/23/19 10:51 AM) 17 br/min (11/23/19 7:29 AM) 18 br/min (11/22/19 11:56 PM) Temperature [96.8-100.4 DegF] 97.1 DegF (11/23/19 7:29 AM) 98.8 DegF (11/22/19 11:56 PM) 98.7 DegF (11/22/19 8:06 PM) Liters per Minute 0 L/min (11/19/19 3:32 PM) 0 L/min (11/19/19 10:56 AM) 0 L/min (11/19/19 7:54 AM) Mode of Delivery (Oxygen) Room air (11/23/19 7:29 AM) Room air (11/22/19 11:56 PM) Room air (11/22/19 8:06 PM) Blood pressure sites Arm, left (11/23/19 7:29 AM) Arm, right (11/22/19 11:56 PM) Arm, left (11/22/19 8:06 PM) Temperature Route Temporal (11/23/19 7:29 AM) Oral (11/22/19 11:56 PM) Oral (11/22/19 8:06 PM) Sensory deficits None (11/18/19 8:24 AM) Mobility assistance Independent (11/18/19 8:24 AM) Social History Social History Type Response Smoking Status Never smoker entered on: 09/28/15 Sex
--- OUTSIDE RECORDS SUMMARY | 2023-11-23 08:20 | XMS_ITS | Continuity of Care Document ---
Author Name Unknown Organization [facility] e Medicine Address Unknown Care Team Providers Care Dock Pumper Name Role Phone Sudha CASTRO, Tucker Finch Primary Care Physician Encounter [facility] Date(s): 04/07/22 - 05/07/22 [facility] Reproductive Medicine Attending Physician: Hugh Martinez Admitting Physician: Hugh Martinez Referring Physician: AdmtrHugh Allergies, Adverse Reactions, Alerts Substance Reaction Severity Status Adhesive Bandage Active Bee Stings Active Medications calcium gummies calcium gummies, Refills 0, Maintenance, 09/15/19 7:45:52 EST, Compound Start Date: 09/15/19 Status: Ordered Diflucan 150 mg oral tablet 1 tablet = 150 mg, By Mouth, Once, MAY REPEAT IN 3 DAYS IF NO RELIEF, # 2 tablet, 0 Refills, Soft Stop, 10/12/20 12:19:00 EST, Tablet, [facility]/pharmacy #[id number], Partial fill upon patient request if the prescription is for a schedule II opioid drug., 165.1,... Start Date: 10/12/20 Status: Ordered estradiol 1 mg oral tablet 4 mg, 4, tablet, By Mouth, Daily, # 480 tablet, Refills 4, Tot. Refills 4, Maintenance, 03/16/21 17:19:00 EDT, Route to Pharmacy Electronically, [facility]/pharmacy #[id number], Renewing Rx for 1 year--keep on file until patient calls for refill, 165.1, cm, 09/03/... Start Date: 03/16/21 Status: Ordered estradiol 2 mg oral tablet 1 tablet = 2 mg, By Mouth, 2 times a day, # 60 capsule, 11 Refills, Maintenance, 02/17/22 14:01:00 EDT, Tablet, [facility]/pharmacy #[id number], Partial fill upon patient request if the prescription is for a schedule II opioid drug., 165.1, cm, 02/17/22 13:38:00 E... Start Date: 02/17/22 Status: Ordered gabapentin 300 mg oral capsule 300 mg, 1, capsule, By Mouth, Daily, # 30 capsule, Refills 11, Tot. Refills 11, Maintenance, 02/17/22 14:01:00 EDT, Route to Pharmacy Electronically, [facility]/pharmacy #[id number], Partial fill upon patient request if the prescription is for a schedule II opioid... Start Date: 02/17/22 Status: Ordered LaMICtal 200 mg oral tablet [...]
--- OUTSIDE RECORDS SUMMARY | 2023-11-23 08:20 | XMS_ITS | Continuity of Care Document ---
Author Name Unknown Organization [facility] e Medicine Address Unknown Care Team Providers Care Wool Hat Forming Machine Tender Name Role Phone Sudha CASTRO, Tucker Finch Primary Care Physician [place] [facility] [place]): 02/17/22 - 03/19/22 [facility] Reproductive Medicine Attending Physician: Hugh Martinez Admitting Physician: Hugh Martinez Referring Physician: Admtr ArQueta Allergies, Adverse Reactions, Alerts Substance Reaction Severity Status Adhesive Bandage Active Bee Stings Active Medications calcium gummies calcium gummies, Refills 0, Maintenance, 09/15/19 7:45:52 EST, Compound Start Date: 09/15/19 Status: Ordered Diflucan 150 mg oral tablet 1 tablet = 150 mg, By Mouth, Once, MAY REPEAT IN 3 DAYS IF NO RELIEF, # 2 tablet, 0 Refills, Soft Stop, 10/12/20 12:19:00 EST, Tablet, [facility]/pharmacy #[id number], Partial fill upon patient request if the prescription is for a schedule II opioid drug., 165.1,... Start Date: 10/12/20 Status: Ordered estradiol 1 mg oral tablet 4 mg, 4, tablet, By Mouth, Daily, # 480 tablet, Refills 4, Tot. Refills 4, Maintenance, 03/16/21 17:19:00 EDT, Route to Pharmacy Electronically, [facility]/pharmacy #[id number], Renewing Rx for 1 year--keep on file until patient calls for refill, 165.1, cm, 09/03/... Start Date: 03/16/21 Status: Ordered estradiol 2 mg oral tablet 1 tablet = 2 mg, By Mouth, 2 times a day, # 60 capsule, 11 Refills, Maintenance, 02/17/22 14:01:00 EDT, Tablet, [facility]/pharmacy #[id number], Partial fill upon patient request if the prescription is for a schedule II opioid drug., 165.1, cm, 02/17/22 13:38:00 E... Start Date: 02/17/22 Status: Ordered gabapentin 300 mg oral capsule 300 mg, 1, capsule, By Mouth, Daily, # 30 capsule, Refills 11, Tot. Refills 11, Maintenance, 02/17/22 14:01:00 EDT, Route to Pharmacy Electronically, [facility]/pharmacy #[id number], Partial fill upon patient request if [...]
--- OUTSIDE RECORDS SUMMARY | 2023-11-23 08:20 | XMS_ITS | Continuity of Care Document ---
Author Name Unknown Organization [facility] e Medicine Address [address] [place] [address], 4t h [address] [place] [address]- Care Team Providers Care Bee Farmer Name Role Phone Sudha CASTRO, Tucker Finch Primary Care Physician [phone] Encounter [facility] [place] Date(s): 02/28/23 - 03/30/23 [facility] Reproductive Medicine [address] [place] [address], 4th [address] [place] [id number] Allergies, Adverse Reactions, Alerts Substance Reaction Severity Status Adhesive Bandage Active Bee Stings Active Medications calcium gummies calcium gummies, Refills 0, Maintenance, 09/15/19 7:45:52 EST, Compound Start Date: 09/15/19 Status: Ordered Diflucan 150 mg oral tablet 1 tablet = 150 mg, By Mouth, Once, MAY REPEAT IN 3 DAYS IF NO RELIEF, # 2 tablet, 0 Refills, Soft Stop, 10/12/20 12:19:00 EST, Tablet, [id number], Partial fill upon patient request if the prescription is for a schedule II opioid drug., 165.1,... Start Date: 10/12/20 Status: Ordered estradiol 2 mg oral tablet 1 tablet, By Mouth, 2 times a day, # 60 tablet, 11 Refills, Maintenance, 02/27/23 13:13:00 EDT, [id number], 165.1, cm, 02/17/22 13:38:00 EDT, Height Start Date: 02/27/23 Status: Ordered gabapentin 300 mg oral capsule 300 mg, 1, capsule, By Mouth, Daily, # 30 capsule, Refills 11, Tot. Refills 11, Maintenance, 02/17/22 14:01:00 EDT, Route to Pharmacy Electronically, [id number], Partial fill upon patient request if the prescription is for a schedule II opioid... Start Date: 02/17/22 Status: Ordered LaMICtal 200 mg oral tablet 1 tablet = 200 mg, By Mouth, 2 times a day, dose increase early refill, # 60 tablet, 11 Refills, Maintenance, 10/07/19 8:49:33 EST, Tablet Start Date: 10/07/19 Status: Ordered Problem List Condition Confirmation Course Effective Dates Status [facility] Informant Obesity Confirmed Active Premenstrual dysphoric disorder Confirmed Active Social History Social History Type Response Smoking Status Never smoker entered on: 05/10/15 Sex Patient Care team information Care Team Personnel Name: Tucker Haley NP Position: Reference Physician Member Role: PCP Address: Address: [address] [place] [address]- Name: Mayela Fitzpatrick RN Position: S RN Member Role: Primary Care Nurse Name: Lisette Bal RN Position: S RN Member Role: Primary Care Nurse Name: Barrett Ji RN Position: S RN Member Role: Primary Care Nurse Care Team Related Persons Name: GURDEEP MEDINA Address: [address] [address]
--- OUTSIDE RECORDS SUMMARY | 2023-11-23 08:20 | XMS_ITS | Continuity of Care Document ---
Author Name Unknown Organization [facility] e Medicine Address [address] [place] [address], 4t [address] [place] [address]- Care Team Providers Care Pressure Testing Technician Name Role Phone Jaimie CASTRO, Randa Brennan Primary Care Physician [place] [facility] [place] 07/12/20 - 08/11/20 [facility] Reproductive Medicine [address] [place] [address], 4th Floor [address] [place] [address]- [facility] Allergies, Adverse Reactions, Alerts Substance Reaction Severity Status Adhesive Bandage Active Medications calcium gummies calcium gummies, Refills 0, Maintenance, 09/15/19 7:45:52 EST, Compound Start Date: 09/15/19 Status: Ordered Diflucan 150 mg oral tablet 1 tablet = 150 mg, By Mouth, Once, MAY REPEAT IN 3 DAYS IF NO RELIEF, # 2 tablet, 0 Refills, Soft Stop, 04/01/20 9:24:00 EDT, Tablet, [facility]/pharmacy #[id number], 165.1, cm, 01/19/20 9:48:00 EDT, Height Start Date: 04/01/20 Status: Ordered estradiol 1 mg oral tablet 3, tablet, By Mouth, Daily, # 90 tablet, Refills 1, Tot. Refills 1, Maintenance, 08/06/20 13:32:00 EDT, Route to Pharmacy Electronically, [facility]/pharmacy #[id number], 165.1, cm, 01/19/20 9:48:00 EDT, Height Start Date: 08/06/20 Status: Ordered LaMICtal 200 mg oral tablet [...]
--- OUTSIDE RECORDS SUMMARY | 2023-11-23 08:20 | XMS_ITS | Continuity of Care Document ---
Author Name Unknown Organization [facility] e Medicine Address [address] [facility], 4t [address] [place] [address]- Care Team Providers Care Retail Analyst Name Role Phone Jaimie CASTRO, Randa Brennan Primary Care Physician En[place] [facility] [place] Date(s): 08/16/20 - 09/15/20 [facility] Reproductive Medicine [address] [facility], 4th Floor [address] [place] [address]- [facility] Allergies, Adverse Reactions, Alerts Substance Reaction Severity Status Adhesive Bandage Active Bee Stings Active Medications calcium gummies calcium gummies, Refills 0, Maintenance, 09/15/19 7:45:52 EST, Compound Start Date: 09/15/19 Status: Ordered estradiol 1 mg oral tablet 3, tablet, By Mouth, Daily, # 270 tablet, Refills 4, Tot. Refills 4, Maintenance, 09/03/20 10:19:00EDT, Route to Pharmacy Electronically, [facility]/pharmacy #[id number], Renewing Rx for 1 year--keep on file [...]
--- OUTSIDE RECORDS SUMMARY | 2023-11-23 08:20 | XMS_ITS | Continuity of Care Document ---
Author Name Unknown Organization [facility] e Medicine Address [address] [place] [address], 4t h [address] [place] [address]- Care Team Providers Care Woolen Tester Name Role Phone Jaimie CASTRO, Randa Brennan Primary Care Physician Encounter [facility] [place] Date(s): 10/12/20 - 11/11/20 [facility] Reproductive Medicine [address] [place] [address], 4th [address] [place] [id number] Allergies, Adverse Reactions, Alerts Substance Reaction [...] Refills, Soft Stop, 10/12/20 12:19:00 EST, Tablet, [facility]/pharmacy #[id number], Partial fill upon patient request if the prescription is for a schedule II opioid drug., 165.1,... Start Date: 10/12/20 Status: Ordered estradiol 1 mg oral tablet 3, tablet, By Mouth, Daily, # 270 tablet, Refills 4, Tot. Refills 4, Maintenance, 09/03/20 10:19:00EDT, Route to Pharmacy Electronically, [facility]/pharmacy #[id number], Renewing Rx for 1 year--keep [...]
--- OUTSIDE RECORDS SUMMARY | 2023-11-23 08:20 | XMS_ITS | Continuity of Care Document ---
Author Name Unknown Organization [facility] e Medicine Address Unknown Care Team Providers Care Element Setter Name Role Phone Jaimie CASTRO, Randa Primary Care Physician En[place] [facility] [place] Date(s): 07/07/21 - 08/06/21 [facility] Reproductive Medicine Allergies, Adverse Reactions, Alerts Substance Reaction Severity Status Adhesive Bandage Active Bee Stings Active Medications calcium gummies calcium gummies, Refills 0, Maintenance, 09/15/19 7:45:52 EST, Compound Start Date: 09/15/19 Status: Ordered Diflucan 150 mg oral tablet 1 tablet = 150 mg, By Mouth, Once, MAY REPEAT IN 3 DAYS IF NO RELIEF, # 2 tablet, 0 Refills, Soft Stop, 10/12/20 12:19:00 EST, Tablet, [facility]/pharmacy #[id number], Partial fill upon patient request if the prescription is for a schedule II opioid drug., 165.1,... Start Date: 10/12/20 Status: Ordered estradiol 1 mg oral tablet 4 mg, 4, tablet, By Mouth, Daily, # 480 tablet, Refills 4, Tot. Refills 4, Maintenance, 03/16/21 17:19:00 EDT, Route to Pharmacy Electronically, [facility]/pharmacy #[id number], Renewing Rx for 1 year--keep on file until patient calls for refill, 165.1, cm, 09/03/... Start Date: 03/16/21 Status: Ordered LaMICtal 200 mg oral tablet [...]
--- OUTSIDE RECORDS SUMMARY | 2023-11-23 08:20 | XMS_ITS | Continuity of Care Document ---
Author Name Unknown Organization [facility] e Medicine Address [address] [place] [address], 4t h Floor [address] [place] [address]- Care Team Providers Care Drill Foreman Name Role Phone Sudha CASTRO, Tucker Finch Primary Care Physician En[place] [facility] [place] Date(s): 02/22/23 - 03/24/23 [facility] Reproductive Medicine [address] [place] [address], 4th [address] [place] [id number] Allergies, Adverse Reactions, Alerts Substance Reaction Severity [...] 11 Refills, Maintenance, 02/27/23 13:13:00 EDT, [id number], 165.1, cm, 02/17/22 13:38:00 EDT, Height Start [...] Reference Physician Member Role: PCP Address: Address: [address] [place] [address]- Name: Mayela Fitzpatrick RN Position: S RN Member Role: Primary Care Nurse Name: Lisette Bal RN Position: S RN Member Role: Primary Care Nurse Name: Barrett Ji RN Position: S RN Member Role: Primary Care Nurse Care Team Related Persons Name: GURDEEP MEDINA Address: [address] [address]
--- OUTSIDE RECORDS SUMMARY | 2023-11-23 08:20 | XMS_ITS | Continuity of Care Document ---
Author Name Unknown Organization [facility] e Medicine Address Unknown Care Team Providers Care Order Taker Name Role Phone Sudha CASTRO, Tucker Finch Primary Care Physician Encounter [facility] [place] Date(s): 02/17/22 - 02/24/22 [facility] Reproductive Medicine Attending Physician: Kimi Diop MD Allergies, Adverse [...] 03/16/21 17:19:00 EDT, Route to [facility]acy Electronically, [id number], Renewing Rx for 1 year--keep on file until patient calls for refill, 165.1, cm, 09/03/... Start Date: 03/16/21 Status: Ordered estradiol 2 mg oral tablet 1 tablet = 2 mg, By Mouth, 2 times a day, # 60 capsule, 11 Refills, Maintenance, 02/17/22 14:01:00 EDT, Tablet, [id number], Partial fill upon patient request if the prescription is for a schedule II opioid drug., 165.1, cm, 02/17/22 13:38:00 E... Start Date: 02/17/22 Status: Ordered gabapentin 300 mg oral capsule 300 mg, 1, capsule, By Mouth, Daily, # 30 capsule, Refills 11, Tot. Refills 11, Maintenance, 02/17/22 14:01:00 EDT, Route to Pharmacy Electronically, [facility]/pharmacy #[id number], Partial fill upon patient request [...] oldest [Reference Range]: 1 Height 165.10 cm (02/17/22 1:38 PM) Weight 79.1 kg (02/17/22 1:38 PM) Pulse Rate [55-90 bpm] 81 bpm (02/17/22 1:38 PM) Body Mass Index [18.5-24.99] 29.02 *H* (02/17/22 1:38 PM) Blood Pressure [90-138/55-84 mm Hg] 126/ 81mm Hg (02/17/22 1:38 PM) Blood pressure sites Arm, right (02/17/22 1:38 PM) Weight Obtained Via Standing scale (02/17/22 1:38 PM) Social History Social History Type Response Smoking Status Never smoker entered on: 05/10/15 Sex
--- OUTSIDE RECORDS SUMMARY | 2023-11-23 08:21 | XMS_ITS | Continuity of Care Document ---
Author Name Unknown Organization [facility] e Medicine Address [address] [place] [address], 4t [address] [place] [address]- Care Team Providers Care Biotechnologist Name Role Phone Jaimie CASTRO, Randa Brennan Primary Care Physician [place] [facility] [place](s): 08/02/20 - 09/01/20 [facility] Reproductive Medicine [address] [place] [address], 4th [address] [place] [address]- [facility] Allergies, Adverse Reactions, Alerts Substance Reaction Severity Status Adhesive Bandage Active Medications calcium gummies calcium gummies, Refills 0, Maintenance, 09/15/19 7:45:52 EST, Compound Start Date: 09/15/19 Status: Ordered Diflucan 150 mg oral tablet 1 tablet = 150 mg, By Mouth, Once, MAY REPEAT IN 3 DAYS IF NO RELIEF, # 2 tablet, 0 Refills, Soft Stop, 04/01/20 9:24:00 EDT, Tablet, [facility]/pharmacy #[id number], 165.1, cm, 01/19/20 9:48:00 EDT, Height Start Date: 04/01/20 Status: Ordered estradiol 1 mg oral tablet 3, tablet, By Mouth, Daily, # 90 tablet, Refills 1, Tot. Refills 1, Maintenance, 08/16/20 9:25:00 EDT, Route to Pharmacy Electronically, [facility]/pharmacy #[id number], 165.1, cm, 01/19/20 9:48:00 EDT, Height Start Date: 08/16/20 Status: Ordered LaMICtal 200 mg oral tablet [...]
--- OUTSIDE RECORDS SUMMARY | 2023-11-23 08:21 | XMS_ITS | Continuity of Care Document ---
Author Name Unknown Organization [facility] e Medicine Address Unknown Care Team Providers Care Shellfish Checker Name Role Phone Sudha CASTRO, Tucker Finch Primary Care Physician En[place] [facility] [place] Date(s): 02/15/22 - 05/07/22 [facility] Reproductive Medicine Attending Physician: Kimi Diop MD Referring Physician: Jaimie CASTRO, Randa Brennan Allergies, Adverse Reactions, Alerts Substance Reaction Severity Status Adhesive Bandage Active Bee Stings Active Medications calcium gummies calcium gummies, Refills 0, Maintenance, 09/15/19 7:45:52 EST, Compound Start Date: 09/15/19 Status: Ordered Diflucan 150 mg oral tablet 1 tablet = 150 mg, By Mouth, Once, MAY REPEAT IN 3 DAYS IF NO RELIEF, # 2 tablet, 0 Refills, Soft Stop, 10/12/20 12:19:00 EST, Tablet, [facility]/pharmacy #[id number], Partial fill upon patient request [...] 11 Refills, Maintenance, 02/17/22 14:01:00 EDT, Tablet, [facility]/pharmacy #[id number], Partial fill upon patient request if the prescription is for a schedule II opioid drug., 165.1, cm, 02/17/22 13:38:00 E... Start Date: 02/17/22 Status: Ordered gabapentin 300 mg oral capsule 300 mg, 1, capsule, By Mouth, Daily, # 30 capsule, Refills 11, Tot. Refills 11, Maintenance, 02/17/22 14:01:00 EDT, Route to Pharmacy Electronically, [facility]/pharmacy #[id number], Partial fill upon patient request [...]
--- OUTSIDE RECORDS SUMMARY | 2023-11-23 08:21 | XMS_ITS | Continuity of Care Document ---
Author Name Unknown Organization [facility] e Medicine Address [address] [place] [address], 4t [address] [place] [address]- Care Team Providers Care Comprehensive Ophthalmologist Name Role Phone Sudha CASTRO, Tucker Finch Primary Care Physician [phone] [place] [facility] [place](s): 02/22/23 - 03/24/23 [facility] Reproductive Medicine [address] [place] [address], 4th [address] [place] [address] Allergies, Adverse Reactions, Alerts Substance Reaction [...] 11 Refills, Maintenance, 02/27/23 13:13:00 EDT, [id number], 165.1, cm, 02/17/22 13:38:00 EDT, Height Start [...] Reference Physician Member Role: PCP Address: Address: [address] [place] [address]- Name: Mayela Fitzpatrick RN Position: S RN Member Role: Primary Care Nurse Name: Lisette Bal RN Position: S RN Member Role: Primary Care Nurse Name: Barrett Ji RN Position: S RN Member Role: Primary Care Nurse Care Team Related Persons Name: GURDEEP MEDINA Address: [address] [address]
--- OUTSIDE RECORDS SUMMARY | 2023-11-23 08:21 | XMS_ITS | Continuity of Care Document ---
Author Name Unknown Organization [facility] e Medicine Address Unknown Care Team Providers Care Red Mud Thickener Operator Name Role Phone Sudha CASTRO, Tucker Finch Primary Care Physician [phone] [place] [facility] [place]13[place] 03/15/22 [facility] Reproductive Medicine Allergies, Adverse Reactions, Alerts [...] 02/17/22 14:01:00 EDT, Route to Pharmacy Electronically, [facility]/pharmacy #[id number], Partial fill upon patient request if the [...]
--- OUTSIDE RECORDS SUMMARY | 2023-11-23 08:21 | XMS_ITS | Continuity of Care Document ---
Author Name Unknown Organization [facility] e Medicine Address [address] [place] [address], 4t [address] Floor [address] [place] [address]- Care Team Providers Care Water Plant Pump Operator Name Role Phone Sudha CASTRO, Tucker Finch Primary Care Physician En[place] [facility] [place] Date(s): 08/07/22 - 09/06/22 [facility] Reproductive Medicine [address] [facility], 4th Floor [address] [place] [address] Allergies, Adverse Reactions, Alerts Substance [...] Refills, Soft Stop, 10/12/20 12:19:00 EST, Tablet, [facility]/pharmacy #[id number], Partial fill upon patient request if the prescription is for a schedule II opioid drug., 165.1,... Start Date: 10/12/20 Status: Ordered estradiol 1 mg oral tablet 4 mg, 4, tablet, By Mouth, Daily, # 480 tablet, Refills 4, Tot. Refills 4, Maintenance, 03/16/21 17:19:00 EDT, Route to Pharmacy Electronically, [facility]/pharmacy #[id number], Renewing Rx for 1 year--keep on file until patient calls for refill, 165.1, cm, 09/03/... Start Date: 03/16/21 Status: Ordered estradiol 2 mg oral tablet 1 tablet = 2 mg, By Mouth, 2 times a day, # 60 capsule, 11 Refills, Maintenance, 02/17/22 14:01:00 EDT, Tablet, [facility]/pharmacy #[id number], Partial fill upon patient request if the prescription is for a schedule II opioid drug., 165.1, cm, 02/17/22 13:38:00 E... Start Date: 02/17/22 Status: Ordered gabapentin 300 mg oral capsule 300 mg, 1, capsule, By Mouth, Daily, # 30 capsule, Refills 11, Tot. Refills 11, Maintenance, 02/17/22 14:01:00 EDT, [id number] Partial fill upon patient request if the prescription is for a schedule II opioid... Start Date: 02/17/22 Status: Ordered LaMICtal 200 mg oral tablet 1 tablet = 200 mg, By Mouth, 2 times a day, dose increase early refill, # 60 tablet, 11 Refills, Maintenance, 10/07/19 8:49:33 EST, Tablet Start Date: 10/07/19 Status: Ordered Problem List Condition Confirmation Course Effective Dates Status [facility] Informant Obesity Confirmed Active Premenstrual dysphoric disorder Confirmed Active Social History Social History Type Response Smoking Status Never smoker entered on: 05/10/15 Sex Patient Care team information Personnel Name: Tucker Haley NP Address: Address: [address] [place] [address]
--- OUTSIDE RECORDS SUMMARY | 2023-11-23 08:21 | XMS_ITS | Continuity of Care Document ---
Author Name Unknown Organization [facility] Address [address] [facility], 3r d Floor, [address] [place] [address]- Care Team Providers Care Hospitality Coordinator Name Role Phone Jaimie CASTRO, Randa Brennan Primary Care Physician [phone] [id number] 10/21/19 - 02/19/20 [facility] [address], 3rd Floor, [address] [place] [address] [facility] Attending Physician: Abran Buchanan MD Admitting Physician: Abran Buchanan MD Allergies, Adverse Reactions, [...] tablet, Refills 11, Tot. Refills 11, Maintenance, 02/03/20 9:00:00 EDT, Route to Pharmacy Electronically, [facility]/pharmacy #[id number], Please hold until previous Rx expires, 165.1, cm, 01/19/20... Start Date: 02/03/20 Status: Ordered LaMICtal 200 mg oral tablet [...]
--- OUTSIDE RECORDS SUMMARY | 2023-11-23 08:21 | XMS_ITS | Continuity of Care Document ---
Author Name Unknown Organization [facility] Address [address] [facility], 3r d Floor, [address] [place] [address]- Care Team Providers Care In Room Dining Server Name Role Phone Jaimie CASTRO, Randa Brennan Primary Care Physician [phone] [id number] Date(s): 01/20/20 - 01/30/20 [facility] [address], 3rd Floor, [address] [place] [address]- [facility] Attending Physician: Hugh Martinez Admitting Physician: Hugh [...] 10/07/19 16:40:37 EST, Route to Pharmacy Electronically, [id number], [facility]/pharmacy #[id number] Start Date: 10/07/19 Status: Ordered LaMICtal [...]
--- OUTSIDE RECORDS SUMMARY | 2023-11-23 08:21 | XMS_ITS | Continuity of Care Document ---
Author Name Unknown Organization [facility] Medicine Address [address] [facility], 4t h Floor [address] [place] [address]- Care Team Providers Care Oracle Adf Developer Name Role Phone Randa Etienne NP Primary Care Physician Encounter [facility] [place] Date(s): 03/07/21 - 04/06/21 [facility] Reproductive Medicine [address] [facility], 4th Floor [address] [place] [id number] Allergies, Adverse Reactions, Alerts Substance Reaction Severity Status Adhesive Bandage Active Bee Stings Active Medications calcium gummies calcium gummies, Refills 0, Maintenance, 09/15/19 7:45:52 EST, Compound Start Date: 09/15/19 Status: Ordered Diflucan 150 mg oral tablet 1 tablet = 150 mg, By Mouth, Once, MAY REPEAT IN 3 DAYS IF NO RELIEF, # 2 tablet, 0 Refills, Soft Stop, 10/12/20 12:19:00 EST, Tablet, [facility]/pharmacy #[id number], Partial fill upon patient request if the prescription is for a schedule II opioid drug., 165.1,... Start Date: 10/12/20 Status: Ordered estradiol 1 mg oral tablet 4 mg, 4, tablet, By Mouth, Daily, # 480 tablet, Refills 4, Tot. Refills 4, Maintenance, 03/16/21 17:19:00 EDT, Route to Pharmacy Electronically, [facility]/pharmacy #[id number], Renewing Rx for 1 year--keep [...]
[2023-11-23 09:00] VITALS: BP 120/80; PULSE 93; TEMP 36.3; O2SAT 97; BMI 30.8
--- NOTE | 2023-11-23 09:00 | AM.OFFWIN_ITS ---
Intake Vital Signs 11/23/23 09:00 Height 5 ft 5 in Weight 185 lb BMI 30.8 BP 120/80 Blood Pressure Location Lt brachial Position Sitting Pulse 93 Pulse Source Pulse Oximeter Temp 97.3 F Temp Source Temporal Artery Scan Pulse Oximetry (%) 97 Oxygen Delivery Method Room Air Intake Visit Reasons: Est/ear pain/sore throat([phone]) Intake Note: pt is here today for ear pain sore throat started yesterday Patient Tobacco Use Status: Never used Tobacco Allergies No Known Allergies [No Known Allergies*] Allergy (Verified 11/23/23 09:01) Medication List - Last Reconciled 11/23/23 by Angela Heck NP albuterol sulfate 90 mcg/actuation (Ventolin HFA) 1 inh inhalation QID PRN 10 days biotin (Hair, Skin and Nails (biotin)) mcg PO calcium carbonate 1,000 mg PO DAILY epinephrine (EpiPen 2-Carter) 0.3 mg (0.3 mL) IM Q10M PRN 30 days estradiol 2 mg PO BID hydroxyzine HCl 10 mg PO BID PRN 30 days lamotrigine 200 mg PO BID mecobalamin (vitamin B12) mcg PO meloxicam 15 mg PO DAILY pseudoephedrine HCl 60 mg PO Q6H PRN Do you need a note to return to daycare/school/sports/work: Yes HPI HPI Comments History of Present Illness Details 33 y/o female patient presents to [facility] with c/o ear pain and sore throat. Symptoms started yesterday. PFSH Medical History Anxiety and depression Stenosis of left carotid artery Seizures Pannus, abdominal Surgical History History of total hysterectomy History of section Family History Father No problems noted. Mother No problems noted. Brother No problems noted. Sister No problems noted. Daughter No problems noted. Son No problems noted. Maternal Grandmother Diabetes mellitus HTN (hypertension) Maternal Grandfather HTN (hypertension) Paternal Grandfather HTN (hypertension) Paternal Grandmother HTN (hypertension) Stroke Social History Housing: House Alcohol intake: never Patient Tobacco Use Status: Never used Tobacco e-Cigarette/Vaping Use: Never Used Second Hand Smoke Exposure: No service: No Current occupational status: employed Current occupation: [employer] Current occupational exposures/hazards: Yes Cognitive needs: No Hearing needs: No Vision needs: No Review of Systems Const All systems reviewed & are unremarkable except as noted in HPI and below Physical Exam Vital Signs: Last Vital Signs Temp 97.3 F 11/23/23 09:00 Pulse 93 11/23/23 09:00 BP 120/80 11/23/23 09:00 Pulse Ox 97 11/23/23 09:00 Oxygen Delivery Method Room Air 11/23/23 09:00 BMI result Body Mass Index 30.8 Const General: no acute distress HEENT Head: Yes normocephalic Ears: external ears normal and TM's normal bilaterally (some wax present) General nose exam: Normal external nose present and Abnormal mucous membranes and turbinates present boggy and erythematous Face and sinus: Yes sinuses nontender Mouth: moist mucous membranes Throat: Yes posterior oropharynx normal Resp Effort & Inspection: normal respiratory effort Auscultation: clear to auscultation bilaterally Cardio Rate: regular rate Rhythm: regular rhythm Results AMB Rapid Strep AMB Rapid Strep Negative Last Edit by Alexis Wagner CMA on 11/23/23 09 :57 Results Reviewed Results Reviewed: Laboratory Last Values Strep Scn Rapid Clinic Negative 11/23/23 09:12 Assessment & Plan Assessment & Plan (1) URI (upper respiratory infection): Code(s): J06.9 - Acute upper respiratory infection, unspecified Qualifiers: URI type: unspecified URI Qualified Code(s): J06.9 - Acute upper respiratory infection, unspecified Plan: - Rest, hydrate - Acetaminophen for ear pain plus Debrox drops - SARs to r/o Virus - Sudafed di (2) Ear pain: Code(s): H92.09 - Otalgia, unspecified ear Qualifiers: Laterality: bilateral Qualified Code(s): H92.03 - Otalgia, bilateral Plan: - Rest, hydrate - Acetaminophen for ear pain plus Debrox drops - SARs to r/o Virus - Sudafed dicong Orders: Orders AMB Rapid Strep Screen Today Z13.9 - Encounter for screening, unspecified SARS-CoV2/FLU/RSV Today J06.9 - Acute upper respiratory infection, unspecified Medications: New acetaminophen 500 mg PO Q6H PRN 30 caps 0RF fever H92.03 - Otalgia, bilateral pseudoephedrine HCl 60 mg PO Q6H PRN 20 tabs 0RF nasal congestion H92.03 - Otalgia, bilateral, J06.9 - Acute upper respiratory infection, unspecified carbamide peroxide 6.5% (Debrox) 5 drps otic (ear) left DAILY 4 days 15 mL 0RF H92.03 - Otalgia, bilateral Coding Level of Care Code Est Pt Level 3 (88026) Diagnoses Upper respiratory tract infection, unspecified type J06.9 URI type: unspecified URI Otalgia of both ears H92.03 Laterality: bilateral Time Spent (min) 15
== END 2023-11-23 10:01 | disposition home or self-care (01) ==
PROVIDERS: PCP Nurse Practitioner Family; Visit Provider Nurse Practitioner Family
DX: J06.9 Acute upper respiratory infection, unspecified (principal); H92.03 Otalgia, bilateral; J02.9 Acute pharyngitis, unspecified
CPT/HCPCS: 87880; 99213

== ENCOUNTER 2023-11-23 13:39 | Outpatient (REF) | payer OTHER, SELFPAY ==
[2023-11-23 14:23] LABS: Influenza A PCR NEGATIVE (Negative); Influenza B PCR NEGATIVE (Negative); Resp Syncy Virus RNA Qual PCR NEGATIVE (Negative); SARS COV2 PCR INHOUSE NEGATIVE (Negative)
== END 2023-11-23 13:40 | disposition home or self-care (01) ==
LOC: HO.LNP 13:39
PROVIDERS: Visit Provider Nurse Practitioner Family
DX: Z11.52 Encounter for screening for COVID-19 (principal); J06.9 Acute upper respiratory infection, unspecified
CPT/HCPCS: 0241U

== ENCOUNTER 2023-12-04 08:18 | Outpatient (AMB) | payer OTHER, SELFPAY ==
[2023-12-04 08:22] VITALS: BP 110/68; PULSE 87; O2SAT 100; BMI 30.1
--- NOTE | 2023-12-04 08:22 | MHC.PC.OV ---
Vital Signs 12/04/23 08:22 Height 5 ft 5 in Weight 181 lb 2 oz BMI 30.1 BP 110/68 Blood Pressure Location Rt brachial Position Sitting Pulse 87 Pulse Source Pulse Oximeter Pulse Oximetry (%) 100 Oxygen Delivery Method Room Air Intake Visit Reasons: 4 month fu Intake Note: Pt is here to follow up for her back and her weight pt needs a work note Allergies No Known Allergies [No Known Allergies*] Allergy (Verified 12/04/23 08:26) Medication List - Last Reconciled 12/04/23 by LEEANNA Winter-RUCHI acetaminophen 500 mg PO Q6H PRN albuterol sulfate 90 mcg/actuation (Ventolin HFA) 1 inh inhalation QID PRN 10 days benzonatate 100 mg PO BID PRN 5 days biotin (Hair, Skin and Nails (biotin)) mcg PO calcium carbonate 1,000 mg PO DAILY carbamide peroxide 6.5% (Debrox) 5 drps otic (ear) left DAILY 4 days epinephrine (EpiPen 2-Carter) 0.3 mg (0.3 mL) IM Q10M PRN 30 days estradiol 2 mg PO BID hydroxyzine HCl 10 mg PO BID PRN 30 days lamotrigine 200 mg PO BID mecobalamin (vitamin B12) mcg PO meloxicam 15 mg PO DAILY pseudoephedrine HCl 60 mg PO Q6H PRN Tobacco use date assessed: 12/04/23 Dental Screening Dental Screen Date: 12/04/23 Did you have a dental visit in the last 12 months?: Yes Did you have a dental problem in the last 6 months where you did not have access to dental care?: No Was dental information given to patient?: Patient has dentist HPI 4 month fu HPI Details Anxiety/depression: Pt is seeing a therapist and psychiatrist. She reports doing well. Denies any SI and HI. Pt was seen in the walk-in on 11/23 c/o ear pain and sore throat. Strep test was negative. Pt was given tylenol, sudafed, and debrox. Pt was negative for COVID/flu/RSV. She reports ongoing cough and chest congestion. Will send benzonatate. Recommended pt continue to use mucinex. Denies fever, chills, and dizziness. [facility] Medical History Anxiety and depression Stenosis of left carotid artery Seizures Pannus, abdominal Surgical History History of total hysterectomy History of section Family History Father No problems noted. Mother No problems noted. Brother No problems noted. Sister No problems noted. Daughter No problems noted. Son No problems noted. Maternal Grandmother Diabetes mellitus HTN (hypertension) Maternal Grandfather HTN (hypertension) Paternal Grandfather HTN (hypertension) Paternal Grandmother HTN (hypertension) Stroke Social History Housing: House Alcohol intake: never Patient Tobacco Use Status: Never used Tobacco e-Cigarette/Vaping Use: Never Used Second Hand Smoke Exposure: No service: No Current occupational status: employed Current occupation: [employer] Current occupational exposures/hazards: Yes Cognitive needs: No Hearing needs: No Vision needs: No Questionnaire PHQ-9 Over the last 2 weeks, how often have you been bothered by any of the following problems? 1. Little interest or pleasure in doing things: more than half the days 2. Feeling down, depressed, or hopeless: more than half the days 3. Trouble falling or staying asleep, or sleeping too much: nearly every day 4. Feeling tired or having little energy: nearly every day 5. Poor appetite or overeating: nearly every day 6. Feeling bad about yourself - or that you are a failure or have let yourself or your family down: more than half the days 7. Trouble concentrating on things, such as reading the newspaper or watching television: not at all 8. Moving or speaking so slowly that other people could have noticed. Or the opposite - being so fidgety or restless that you have been moving around a lot more than usual: not at all 9. Thoughts that you would be better off or of hurting yourself in some way: not at all Total score: 15 Source: Developed by Drs. Arpan Richmond, Alysha Mitchell, Iván Pinto and colleagues, with an educational bharathi from [employer]. Thrive Questionnaire Date Thrive assessed: 12/04/23 I am a: Patient What is your living situation today?: I have a steady place to live Within the past 12 months, did the food you bought not last and you didn't have the money to get more?: Never true Within the past 12 months, did you worry whether your food would run out before you got money to buy more?: Never true Do you have trouble paying for medicines?: No Do you have trouble getting transportation to medical appointments?: No Do you have trouble paying your heating and electricity bill?: No Do you have trouble taking care of your child, family member or friend?: No Do you have trouble with day-to-day activities such as bathing, preparing meals, shopping, managing finances, etc.?: No Are you currently unemployed and looking for a job?: No Are you interested in more education?: No THRIVE Score: 0 AUDIT C Alcohol Use Questionnaire (AUDIT-C) 1. How often do you have a drink containing alcohol?: Never Total Score: 0 RADHA-7 AMB Questionnaire RADHA-7 Date RADHA - 7 assessed: 12/04/23 Feeling nervous, anxious, or on edge: 1 = Several days Not being able to stop or control worryin = More than half the days Worrying too much about different things: 2 = More than half the days Trouble relaxin = Nearly every day Being so restless that it is hard to sit still: 1 = Several days Becoming easily annoyed or irritable: 1 = Several days Feeling afraid as if something awful might happen: 1 = Several days Total RADHA-7 score (0-4 normal; 5-9 mild; 10-14 moderate; 15-21 severe): 11 Source: Developed by Drs. Arpan Richmond, Alysha Mitchell, Iván Pinto and colleagues, with an educational bharathi from [employer]. Review of Systems Const Reports as per HPI Physical exam (Primary Care) Vital Signs: Last Vital Signs Pulse 87 12/04/23 08:22 BP 110/68 12/04/23 08:22 Pulse Ox 100 12/04/23 08:22 Oxygen Delivery Method Room Air 12/04/23 08:22 BMI result Body Mass Index 30.1 Tobacco/Smoking Status: Tobacco use Status Tobacco use date assessed 12/04/23 12/04/23 08:30 Patient Tobacco Use Status Never used Tobacco 12/04/23 08:22 e-Cigarette/Vaping Use Never Used 12/04/23 08:22 Thrive Assessment: Date of Thrive Assessment Date Thrive assessed 03/29/23 12/04/23 08:22 Const General: cooperative Orientation/consciousness: patient oriented x3 HENMT Ears: TM normal on the right and TM normal on the left Face and sinus: Yes sinuses nontender Throat: Yes posterior oropharynx normal Resp Effort & Inspection: normal respiratory effort Auscultation: clear to auscultation bilaterally Cardio Rate: regular rate Rhythm: regular rhythm Heart sounds: S1 normal heart sound present and S2 normal heart sound present Neuro General: patient oriented x3 Psych Appearance: grossly normal Mental Status: mental status grossly normal Speech and movement: Normal speech and movement present Affect: normal affect Attitude: cooperative Thought process: Normal thought process present Thought content: Normal thought content present Insight: Good insight present (Psych) Judgement: Good judgement present (Psych) Assessment and Plan Assessment & Plan (1) URI (upper respiratory infection): Code(s): J06.9 - Acute upper respiratory infection, unspecified Qualifiers: URI type: unspecified URI Qualified Code(s): J06.9 - Acute upper respiratory infection, unspecified Plan: Sent benzonatate (2) Anxiety: Code(s): F41.9 - Anxiety disorder, unspecified Plan: Continue to follow up with psychatrist and therapist (3) Cough: Code(s): R05.9 - Cough, unspecified Plan: Sent benzonatate Plan The patient agreed to the use of a director of graduate medical education for this encounter. Scribed for DOMINICK Copeland by Olena Almonte director of graduate medical education, on 12/04/2023 at 08:40 EST. Medications: New benzonatate 100 mg PO BID 5 days PRN 10 caps 0RF cough Coding Level of Care Code Est Pt Level 3 (70174) Diagnoses Upper respiratory tract infection, unspecified type J06.9 URI type: unspecified URI Anxiety F41.9 Cough R05.9
== END 2023-12-04 11:50 | disposition home or self-care (01) ==
PROVIDERS: PCP Nurse Practitioner Family; Visit Provider Nurse Practitioner Family
DX: J06.9 Acute upper respiratory infection, unspecified (principal); F41.9 Anxiety disorder, unspecified; R05.9 Cough, unspecified
CPT/HCPCS: 99213

== ENCOUNTER 2024-01-10 15:00 | Outpatient (RCR) | payer OTHER, SELFPAY ==
--- NOTE | 2024-02-11 08:02 | MHC.PT.DC ---
[facility] [place] [facility] [place] [facility] [place] Office [address] [phone] F: [phone] F: [phone] F: [phone] F: [phone] Physical Therapy Discharge Report Diagnosis: pain of back and LE Date of Surgery: n/a Date of Evaluation: 11/07/23 Date of Discharge: 02/11/24 Treatments to Date: 7 Cancellations to Date: 2 No Shows to Date: 0 Discharge Status: Patient Elected to Stop Discharge Summary: Pt has not attended skilled PT in >30 days and therefore to be d/c per policy. Electronically signed by: Tameka Griffiths, PT, DPT, ATC Please sign and return to therapist. Thank you for your referral.
== END 2024-02-11 08:03 | disposition home or self-care (01) ==
LOC: HO.PTCHIC 15:00
PROVIDERS: PCP Nurse Practitioner Family; Visit Provider Nurse Practitioner Family
DX: M54.9 Dorsalgia, unspecified (principal); M79.605 Pain in left leg
CPT/HCPCS: 97110; 97161

== ENCOUNTER 2024-02-05 07:44 | Outpatient (AMB) | payer OTHER, SELFPAY ==
--- NOTE | 2024-02-05 07:10 | MHC.PC.OV ---
Intake Visit Reasons: stress at work Allergies No Known Allergies [No Known Allergies*] Allergy (Verified 12/04/23 08:26) Tobacco use date assessed: 12/04/23 HPI stress at work HPI Details Stress/anxiety: Pt reports increased stress at work. Pt has a therapist involved who she sees regularly. Denies any SI and HI. Catastrophising elements noted. encouraged pt to stop this thinking before it becomes overwhelming. ON LICENSE OF [facility] Medical History Anxiety and depression Stenosis of left carotid artery Seizures Pannus, abdominal Surgical History History of total hysterectomy History of section Family History Father No problems noted. Mother No problems noted. Brother No problems noted. Sister No problems noted. Daughter No problems noted. Son No problems noted. Maternal Grandmother Diabetes mellitus HTN (hypertension) Maternal Grandfather HTN (hypertension) Paternal Grandfather HTN (hypertension) Paternal Grandmother HTN (hypertension) Stroke Social History Housing: House Alcohol intake: never Patient Tobacco Use Status: Never used Tobacco e-Cigarette/Vaping Use: Never Used Second Hand Smoke Exposure: No service: No Current occupational status: employed Current occupation: [employer] Current occupational exposures/hazards: Yes Cognitive needs: No Hearing needs: No Vision needs: No Questionnaire Thrive Questionnaire Date Thrive assessed: 12/04/23 RADHA-7 AMB Questionnaire RADHA-7 Date RADHA - 7 assessed: 12/04/23 Source: Developed by Drs. Arpan Richmond, Alysha Mitchell, Iván Pinto and colleagues, with an educational bharathi from [employer]. Review of Systems Const Reports as per HPI Physical exam (Primary Care) Tobacco/Smoking Status: Tobacco use Status Tobacco use date assessed 12/04/23 01/24/24 12:24 Patient Tobacco Use Status Never used Tobacco 01/24/24 12:24 e-Cigarette/Vaping Use Never Used 01/24/24 12:24 Thrive Assessment: Date of Thrive Assessment Date Thrive assessed 12/04/23 01/24/24 12:24 Const General: cooperative Orientation/consciousness: patient oriented x3 Neuro General: patient oriented x3 Psych Appearance: grossly normal Mental Status: mental status grossly normal Speech and movement: Clear speech present Affect: normal affect Attitude: cooperative Thought process: Normal thought process present Thought content: Normal thought content present Insight: Good insight present (Psych) Judgement: Good judgement present (Psych) Telehealth Telehealth Location of provider rendering services: practice address Location of patient: address on file Patient Identification confirmed using: Name, : Yes Telehealth method: video Patient verbally consented to treatment: Yes Patient verbally consented to billing insurance company: Yes Patient informed of any privacy concerns related to visit: Yes Minutes spent on Phone/Video with Pt.: 15 Assessment and Plan Assessment & Plan (1) Stress at work: Code(s): Z56.6 - Other physical and mental strain related to work (2) Anxiety: Code(s): F41.9 - Anxiety disorder, unspecified Plan: denies any si or hi, recommended continue therapy. Take one day at at time, element of catastrophising noted. encouraged pt to work on slowing this process. Plan The patient agreed to the use of a medical receptionist assistant for this encounter. Scribed for DOMINICK Copeland by Olena Almonte medical receptionist assistant, on 02/05/2024 at 07:10 EST. Coding Level of Care Code Tele Est Pt Level 3 (47457) Diagnoses Stress at work Z56.6 Anxiety F41.9
== END 2024-02-05 07:46 | disposition home or self-care (01) ==
LOC: HO.HMGC 07:44
PROVIDERS: PCP Nurse Practitioner Family; Visit Provider Nurse Practitioner Family
DX: F41.9 Anxiety disorder, unspecified (principal); Z56.6 Other physical and mental strain related to work
CPT/HCPCS: 99213

== ENCOUNTER 2024-02-11 08:07 | Outpatient (AMB) | payer OTHER, SELFPAY ==
--- NOTE | 2024-02-11 08:22 | AM.OFFWIN_ITS ---
Intake Vital Signs 02/11/24 08:27 Height 5 ft 5 in BP 110/62 Blood Pressure Location Rt brachial Position Sitting Pulse 79 Pulse Source Pulse Oximeter Temp 98.3 F Temp Source Oral Pulse Oximetry (%) 100 Oxygen Delivery Method Room Air Intake Visit Reasons: EP COVID + 6 days/Lungs hurt [phone] Intake Note: pt tested positive for covid this past Wed and says she is not coughing but her her chest and lungs hurt and she gets tried easy and she says she is congested Patient Tobacco Use Status: Never used Tobacco Allergies No Known Allergies [No Known Allergies*] Allergy (Verified 02/11/24 08:25) Do you need a note to return to daycare/school/sports/work: Yes HPI HPI Comments History of Present Illness Details 33 y/o female patient who presents [facility] with c/o chest tightness. Pt was diagnosed with COVID 19 infection 7 days ago. [facility] Medical History Anxiety and depression Stenosis of left carotid artery Seizures Pannus, abdominal Surgical History History of total hysterectomy History of section Family History Father No problems noted. Mother No problems noted. Brother No problems noted. Sister No problems noted. Daughter No problems noted. Son No problems noted. Maternal Grandmother Diabetes mellitus HTN (hypertension) Maternal Grandfather HTN (hypertension) Paternal Grandfather HTN (hypertension) Paternal Grandmother HTN (hypertension) Stroke Social History Housing: House Alcohol intake: never Patient Tobacco Use Status: Never used Tobacco e-Cigarette/Vaping Use: Never Used Second Hand Smoke Exposure: No service: No Current occupational status: employed Current occupation: [employer] in [place] Current occupational exposures/hazards: Yes Cognitive needs: No Hearing needs: No Vision needs: No Review of Systems Const All systems reviewed & are unremarkable except as noted in HPI and below Physical Exam Vital Signs: Last Vital Signs Temp 98.3 F 02/11/24 08:27 Pulse 79 02/11/24 08:27 BP 110/62 02/11/24 08:27 Pulse Ox 100 02/11/24 08:27 Oxygen Delivery Method Room Air 02/11/24 08:27 Const General: comfortable and no acute distress Orientation/consciousness: patient oriented x3 HEENT Head: Yes normocephalic Ears: external ears normal and TM's normal bilaterally General nose exam: Normal nasal mucous membranes and turbinates present Mouth: moist mucous membranes Resp Effort & Inspection: normal respiratory effort and able to speak in complete sentences Auscultation: clear to auscultation bilaterally, no crackles, no rales, no rhonchi and no wheezes Cardio Rate: regular rate Rhythm: regular rhythm Neuro General: patient oriented x3 Assessment & Plan Assessment & Plan (1) COVID-19 virus infection: Code(s): U07.1 - COVID-19 Plan: - Stable Vitals and exam WNL - Rest and Acetaminophen for pain relief - OTC cold remedies. - RTC if worse. Coding Level of Care Code Est Pt Level 3 (83101) Diagnoses COVID-19 virus infection U07.1 Time Spent (min) 15
[2024-02-11 08:27] VITALS: BP 110/62; PULSE 79; TEMP 36.8; O2SAT 100
== END 2024-02-11 09:05 | disposition home or self-care (01) ==
PROVIDERS: PCP Nurse Practitioner Family; Visit Provider Nurse Practitioner Family
DX: U07.1 COVID-19 (principal)
CPT/HCPCS: 99213

== ENCOUNTER 2024-04-10 14:57 | Outpatient (AMB) | payer OTHER, SELFPAY ==
--- NOTE | 2024-04-10 14:58 | A.OFFPC_ITS ---
Vital Signs 04/10/24 15:03 Height 5 ft 5 in Weight 177 lb BMI 29.5 BP 122/80 Blood Pressure Location Rt brachial Position Sitting Pulse 68 Pulse Source Pulse Oximeter Pulse Oximetry (%) 97 Oxygen Delivery Method Room Air Intake Visit Reasons: Chest Congestion 12 days Intake Note: Patient here to address chest congestion that has been present for about 12 days. Allergies No Known Allergies [No Known Allergies*] Allergy (Verified 04/10/24 15:19) Medication List - Last Reconciled 04/10/24 by DOMINICK Winter albuterol sulfate 90 mcg/actuation (Ventolin HFA) 1 inh inhalation QID PRN 10 days biotin (Hair, Skin and Nails (biotin)) mcg PO calcium carbonate 1,000 mg PO DAILY epinephrine (EpiPen 2-Carter) 0.3 mg (0.3 mL) IM Q10M PRN 30 days estradiol 2 mg PO BID hydroxyzine HCl 10 mg PO BID PRN 30 days lamotrigine 200 mg PO BID mecobalamin (vitamin B12) mcg PO Tobacco use date assessed: 12/04/23 Dental Screening Dental Screen Date: 12/04/23 HPI Chest Congestion 12 days HPI Details Pt is here for a PE. Will order labs. Has a open cut examiner. pt has a therapist. Pt reports increased allergy symptoms (cough and congestion). Recommended OTC cetirizine. [facility] Medical History Anxiety and depression Stenosis of left carotid artery Seizures Pannus, abdominal Surgical History History of total hysterectomy History of section Family History Father No problems noted. Mother No problems noted. Brother No problems noted. Sister No problems noted. Daughter No problems noted. Son No problems noted. Maternal Grandmother Diabetes mellitus HTN (hypertension) Maternal Grandfather HTN (hypertension) Paternal Grandfather HTN (hypertension) Paternal Grandmother HTN (hypertension) Stroke Social History Housing: House Alcohol intake: never Patient Tobacco Use Status: Never used Tobacco e-Cigarette/Vaping Use: Never Used Second Hand Smoke Exposure: No service: No Current occupational status: employed Current occupation: [employer] Current occupational exposures/hazards: Yes Cognitive needs: No Hearing needs: No Vision needs: No Questionnaire PHQ-9 Over the last 2 weeks, how often have you been bothered by any of the following problems? 57316 - PHQ-9 Billing: Patient declined-do not bill Source: Developed by Alysha Calix Kurt Kroenke and colleagues, with an educational bharathi from [employer]. Thrive Questionnaire Date Thrive assessed: 12/04/23 RADHA-7 AMB Questionnaire RADHA-7 Date RADHA - 7 assessed: 12/04/23 Source: Developed by Alysha Calix Kurt Kroenke and colleagues, with an educational bharathi from [employer]. RADHA-7 Assessment Billing RADHA-7 Assessment Tool: pt declined-do not bill Review of Systems Const Denies chills and Denies fever(s) Eyes Denies blurry vision ENT Denies vertigo, Denies dizziness and Denies sore throat Card Denies chest pain at rest, Denies chest pain with activity, Denies diaphoresis, Denies dyspnea and Denies dyspnea on exertion Resp Denies cough, Denies dyspnea, Denies dyspnea on exertion and Denies wheezing GI Denies abdominal pain, Denies melena, Denies hematochezia, Denies constipation, Denies diarrhea and Denies loose stools Denies hematuria Musc Denies numbness and Denies tingling Skin/Breast Denies lesions Neuro Denies vertigo, Denies dizziness, Denies numbness and Denies tingling Psych Denies anxiety, Denies depression, Denies homicidal ideation, Denies suicidal ideation and Denies other (substance abuse) Aller/Immun Denies wheezing Physical exam (Primary Care) Vital Signs: Last Vital Signs Pulse 68 04/10/24 15:03 BP 122/80 04/10/24 15:03 Pulse Ox 97 04/10/24 15:03 Oxygen Delivery Method Room Air 04/10/24 15:03 BMI result Body Mass Index 29.5 Tobacco/Smoking Status: Tobacco use Status Tobacco use date assessed 01/23/24 05/30/24 14:59 Patient Tobacco Use Status Never used Tobacco 04/10/24 14:59 e-Cigarette/Vaping Use Never Used 04/10/24 14:59 Thrive Assessment: Date of Thrive Assessment Date Thrive assessed 12/04/23 04/10/24 14:59 Const General: cooperative Nutritional Appearance: well nourished Orientation/consciousness: patient oriented x3 HENMT Head: Yes normal to inspection, Yes normocephalic and Yes atraumatic Ears: TM's normal bilaterally Eyes General: appearance normal, both eyes and all related structures Alignment and Position: alignment normal and position normal Neck Neck: Yes normal visual inspection and Yes no lymphadenopathy Thyroid: Thyroid normal Resp Effort & Inspection: normal respiratory effort Auscultation: clear to auscultation bilaterally Cardio Rate: regular rate Rhythm: regular rhythm Heart sounds: S1 normal heart sound present, S2 normal heart sound present and no murmurs GI Palpation (GI): Soft to palpation and nontender Auscultation: normal bowel sounds Skin Rashes: no rashes Neuro General: patient oriented x3, moves all extremities, no focal motor deficits and deep tendon reflexes 2+ bilaterally Romberg Test: Negative Psych Appearance: grossly normal Mental Status: mental status grossly normal Speech and movement: Normal speech and movement present Affect: normal affect Attitude: cooperative Thought process: Normal thought process present Thought content: Normal thought content present Insight: Good insight present (Psych) Judgement: Good judgement present (Psych) Assessment and Plan Assessment & Plan (1) Physical exam: Code(s): Z00.00 - Encounter for general adult medical examination without abnormal findings (2) Allergies: Code(s): T78.40XA - Allergy, unspecified, initial encounter Plan The patient agreed to the use of a medical office asst for this encounter. Scribed for DOMINICK Copeland by Olena Almonte medical office asst, on 04/10/2024 at 15:15 EST. Coding Level of Care Code Est Pt Prev Care 18-39y(92391) Diagnoses Physical exam Z00.00 Allergies T78.40XA
[2024-04-10 15:03] VITALS: BP 122/80; PULSE 68; O2SAT 97; BMI 29.5
== END 2024-04-10 16:27 | disposition home or self-care (01) ==
PROVIDERS: PCP Nurse Practitioner Family; Visit Provider Nurse Practitioner Family
DX: Z00.00 Encounter for general adult medical examination without abnormal findings (principal); T78.40XA Allergy, unspecified, initial encounter
CPT/HCPCS: 99395

== ENCOUNTER 2024-06-11 11:04 | Outpatient (AMB) | payer OTHER, SELFPAY ==
[2024-06-11 11:15] VITALS: BP 112/70; PULSE 95; O2SAT 98; BMI 29.6
--- NOTE | 2024-06-11 11:15 | MHC.PC.OV ---
Vital Signs 06/11/24 11:15 Height 5 ft 5 in Weight 178 lb BMI 29.6 BP 112/70 Blood Pressure Location Rt brachial Position Sitting Pulse 95 Pulse Source Pulse Oximeter Pulse Oximetry (%) 98 Oxygen Delivery Method Room Air Intake Visit Reasons: F/up Intake Note: Patient here for back pain and would like to talk about hives on torso, legs and on chest that are in clusters of 3. Allergies No Known Allergies [No Known Allergies*] Allergy (Verified 06/11/24 11:19) Medication List - Last Reconciled 06/11/24 by DOMINICK Winter albuterol sulfate 90 mcg/actuation (Ventolin HFA) 1 inh inhalation QID PRN 10 days biotin (Hair, Skin and Nails (biotin)) mcg PO calcium carbonate 1,000 mg PO DAILY epinephrine (EpiPen 2-Carter) 0.3 mg (0.3 mL) IM Q10M PRN 30 days estradiol 2 mg PO BID hydroxyzine HCl 10 mg PO BID PRN 30 days lamotrigine 200 mg PO BID 90 days mecobalamin (vitamin B12) mcg PO Tobacco use date assessed: 12/04/23 Dental Screening Dental Screen Date: 12/04/23 HPI F/up HPI Details Anxiety/depression: Pt is seeing a therapist and a psychiatrist. She reports doing well overall. She does have some family stressors ( working and taking classes). Denies any SI and HI. she follows up with a therapist regularly. NOTE: I will cont to prescribe the lamotrigine until her first neuro appt in March [facility] Medical History (Updated 06/11/24 @ 13:30 by DOMINICK Winter) Anxiety and depression Stenosis of left carotid artery Seizures Pannus, abdominal Surgical History History of total hysterectomy History of section Family History Father No problems noted. Mother No problems noted. Brother No problems noted. Sister No problems noted. Daughter No problems noted. Son No problems noted. Maternal Grandmother Diabetes mellitus HTN (hypertension) Maternal Grandfather HTN (hypertension) Paternal Grandfather HTN (hypertension) Paternal Grandmother HTN (hypertension) Stroke Social History Housing: House Alcohol intake: never Patient Tobacco Use Status: Never used Tobacco e-Cigarette/Vaping Use: Never Used Second Hand Smoke Exposure: No service: No Current occupational status: employed Current occupation: [employer] Current occupational exposures/hazards: Yes Cognitive needs: No Hearing needs: No Vision needs: No Questionnaire PHQ-9 Over the last 2 weeks, how often have you been bothered by any of the following problems? 93731 - PHQ-9 Billing: Patient declined-do not bill Source: Developed by Drs. Arpan Richmond, Alysha Mitchell, Iván Pinto and colleagues, with an educational bharathi from [employer]. Thrive Questionnaire Date Thrive assessed: 12/04/23 I am a: Patient What is your living situation today?: I choose not to answer this question Within the past 12 months, did the food you bought not last and you didn't have the money to get more?: I choose not to answer this question Within the past 12 months, did you worry whether your food would run out before you got money to buy more?: I choose not to answer this question Do you have trouble paying for medicines?: No Do you have trouble getting transportation to medical appointments?: No Do you have trouble paying your heating and electricity bill?: No Do you have trouble taking care of your child, family member or friend?: No Do you have trouble with day-to-day activities such as bathing, preparing meals, shopping, managing finances, etc.?: No Are you currently unemployed and looking for a job?: No Are you interested in more education?: No Please select the resources that you would like help with: Housing/Correction Currently or been in a relationship where the following occur: I choose not to answer THRIVE Score: 0 AUDIT C Alcohol Use Questionnaire (AUDIT-C) 1. How often do you have a drink containing alcohol?: Never Total Score: 0 RADHA-7 AMB Questionnaire RADHA-7 Date RADHA - 7 assessed: 12/04/23 Feeling nervous, anxious, or on edge: 1 = Several days Not being able to stop or control worryin = Several days Worrying too much about different things: 1 = Several days Trouble relaxin = Several days Being so restless that it is hard to sit still: 1 = Several days Becoming easily annoyed or irritable: 0 = Not at all Feeling afraid as if something awful might happen: 0 = Not at all Total RDAHA-7 score (0-4 normal; 5-9 mild; 10-14 moderate; 15-21 severe): 5 Source: Developed by Drs. Arpan Richmond, Alysha Mitchell, Iván Pinto and colleagues, with an educational bharathi from [employer]. RADHA-7 Assessment Billing RADHA-7 Assessment Tool: RADHA-7 Assessment 76765 Review of Systems Const Reports as per HPI Physical exam (Primary Care) Vital Signs: Last Vital Signs Pulse 95 06/11/24 11:15 BP 112/70 06/11/24 11:15 Pulse Ox 98 06/11/24 11:15 Oxygen Delivery Method Room Air 06/11/24 11:15 BMI result Body Mass Index 29.6 Tobacco/Smoking Status: Tobacco use Status Tobacco use date assessed 12/04/23 06/11/24 11:17 Patient Tobacco Use Status Never used Tobacco 06/11/24 11:17 e-Cigarette/Vaping Use Never Used 06/11/24 11:17 Thrive Assessment: Date of Thrive Assessment Date Thrive assessed 12/04/23 06/11/24 11:17 Currently or been in a relationship where the following occur: I choose not to answer Const General: cooperative Orientation/consciousness: patient oriented x3 Resp Effort & Inspection: normal respiratory effort Auscultation: clear to auscultation bilaterally Cardio Rate: regular rate Rhythm: regular rhythm Heart sounds: S1 normal heart sound present and S2 normal heart sound present Neuro General: patient oriented x3 Psych Appearance: grossly normal Mental Status: mental status grossly normal Speech and movement: Normal speech and movement present Affect: normal affect Attitude: cooperative Thought process: Normal thought process present Thought content: Normal thought content present Insight: Good insight present (Psych) Judgement: Good judgement present (Psych) Assessment and Plan Assessment & Plan (1) Anxiety and depression: Code(s): F41.9 - Anxiety disorder, unspecified; F32.9 - Major depressive disorder, single episode, unspecified Plan: cont therapy and work on coping mechanisms Plan The patient agreed to the use of a medical technologist blood bank for this encounter. Scribed for DOMINICK Copeland by Olena Almonte medical technologist blood bank, on 06/11/2024 at 11:25 EST. Medications: Refilled lamotrigine 200 mg PO BID 180 tabs 0RF 90 days Coding Level of Care Code Est Pt Level 3 (91630) Diagnoses Anxiety and depression F41.9; F32.9 Additional Codes RADHA-7 Assessment Billing - RADHA-7 Assessment Tool: RADHA-7 Assessment 35594 ([id number])
== END 2024-06-11 12:53 | disposition home or self-care (01) ==
PROVIDERS: PCP Nurse Practitioner Family; Visit Provider Nurse Practitioner Family
DX: F41.9 Anxiety disorder, unspecified (principal); F32.9 Major depressive disorder, single episode, unspecified
CPT/HCPCS: 99213

== ENCOUNTER 2024-07-29 06:47 | Outpatient (AMB) | payer OTHER, SELFPAY ==
--- NOTE | 2024-07-29 07:17 | MHC.PC.OV ---
Intake Visit Reasons: 1 month f/u Allergies No Known Allergies [No Known Allergies*] Allergy (Verified 06/11/24 11:19) Tobacco use date assessed: 12/04/23 Dental Screening Dental Screen Date: 12/04/23 HPI 1 month f/u HPI Details Anxiety/depression: Pt reports doing well. She is seeing a therapist. Denies any SI and HI. Will order labs. [facility] Medical History Anxiety and depression Stenosis of left carotid artery Seizures Pannus, abdominal Surgical History History of total hysterectomy History of section Family History Father No problems noted. Mother No problems noted. Brother No problems noted. Sister No problems noted. Daughter No problems noted. Son No problems noted. Maternal Grandmother Diabetes mellitus HTN (hypertension) Maternal Grandfather HTN (hypertension) Paternal Grandfather HTN (hypertension) Paternal Grandmother HTN (hypertension) Stroke Social History Housing: House Alcohol intake: never Patient Tobacco Use Status: Never used Tobacco e-Cigarette/Vaping Use: Never Used Second Hand Smoke Exposure: No service: No Current occupational status: employed Current occupation: [employer] Current occupational exposures/hazards: Yes Cognitive needs: No Hearing needs: No Vision needs: No Questionnaire Thrive Questionnaire Date Thrive assessed: 12/04/23 RADHA-7 AMB Questionnaire RADHA-7 Date RADHA - 7 assessed: 12/04/23 Source: Developed by Drs. Arpan Richmond, Alysha Mitchell, Iván Pinto and colleagues, with an educational bharathi from [employer]. Review of Systems Const Reports as per HPI Physical exam (Primary Care) Tobacco/Smoking Status: Tobacco use Status Tobacco use date assessed 12/04/23 06/11/24 11:17 Patient Tobacco Use Status Never used Tobacco 06/11/24 11:17 e-Cigarette/Vaping Use Never Used 06/11/24 11:17 Thrive Assessment: Date of Thrive Assessment Date Thrive assessed 12/04/23 06/11/24 11:17 Const General: cooperative Orientation/consciousness: patient oriented x3 Neuro General: patient oriented x3 Psych Appearance: grossly normal Mental Status: mental status grossly normal Speech and movement: Clear speech present Affect: normal affect Attitude: cooperative Thought process: Normal thought process present Thought content: Normal thought content present Insight: Good insight present (Psych) Judgement: Good judgement present (Psych) Telehealth Telehealth Telehealth Platform: [employer] Location of provider rendering services: practice address Location of patient: address on file Patient Identification confirmed using: Name, : Yes Telehealth method: video Patient verbally consented to treatment: Yes Patient verbally consented to billing insurance company: Yes Patient informed of any privacy concerns related to visit: Yes Minutes spent on Phone/Video with Pt.: 10 Assessment and Plan Assessment & Plan (1) Anxiety and depression: Code(s): F41.9 - Anxiety disorder, unspecified; F32.9 - Major depressive disorder, single episode, unspecified Plan: Doing well, recommended continue meds and therapy. Will cont to monitor Plan The patient agreed to the use of a biomedical field service engineer for this encounter. Scribed for LEEANNA Copeland-BC by Olena Almonte biomedical field service engineer, on 07/29/2024 at 07:15 EST. Orders: Orders TSH reflex Free T4 Today F32.9 - Major depressive disorder, single episode, unspecified, F41.9 - Anxiety disorder, unspecified Complete Blood Count Auto Diff Today F32.9 - Major depressive disorder, single episode, unspecified, F41.9 - Anxiety disorder, unspecified Comprehensive [place]. Panel Fast Today F32.9 - Major depressive disorder, single episode, unspecified, F41.9 - Anxiety disorder, unspecified UA CC w/rflx Micro + Cult Today F32.9 - Major depressive disorder, single episode, unspecified, F41.9 - Anxiety disorder, unspecified Lipid Panel Today F32.9 - Major depressive disorder, single episode, unspecified, F41.9 - Anxiety disorder, unspecified Coding Level of Care Code Tele Est Pt Level 3 (86722) Diagnoses Anxiety and depression F41.9; F32.9
== END 2024-07-29 07:50 | disposition home or self-care (01) ==
LOC: HO.HMCC 06:47
PROVIDERS: PCP Nurse Practitioner Family; Visit Provider Nurse Practitioner Family
DX: F41.9 Anxiety disorder, unspecified (principal); F32.9 Major depressive disorder, single episode, unspecified

== ENCOUNTER → 2024-07-29 06:47 | Outpatient (BNVA) | payer OTHER, SELFPAY | PROVIDERS: PCP Nurse Practitioner Family; Visit Provider Nurse Practitioner Family | DX: F41.9 Anxiety disorder, unspecified (principal); F32.9 Major depressive disorder, single episode, unspecified ==

== ENCOUNTER 2024-08-18 14:55 | Outpatient (AMB) | payer OTHER, SELFPAY ==
--- NOTE | 2024-08-18 14:56 | AM.OFFWIN_ITS ---
Intake Vital Signs 08/18/24 15:00 Height 5 ft 5 in Weight 178 lb BMI 29.6 BP 114/80 Blood Pressure Location Rt brachial Position Sitting Pulse 72 Pulse Source Pulse Oximeter Temp 98.1 F Temp Source Oral Pulse Oximetry (%) 98 Oxygen Delivery Method Room Air Intake Visit Reasons: EP-lt ear infection, Intake Note: Patient here for left ear pain and has discharge which started today. Patient Tobacco Use Status: Never used Tobacco Allergies No Known Allergies [No Known Allergies*] Allergy (Verified 08/18/24 15:00) Do you need a note to return to daycare/school/sports/work: Yes HPI EP-lt ear infection, HPI Details This note is constructed using voice recognition software. While every effort has been made to ensure accuracy, sales representative electric service errors may have been included. The patient is a 34 year old female who presents to the clinic today with left- sided ear pain since yesterday. She denies fever, chills, cough, shortness of breath. 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 She had a sensation like she had some discharge from her left ear, however has not actually seen any discharge. Hearing is unchanged. [facility] Medical History Anxiety and depression Stenosis of left carotid artery Seizures Pannus, abdominal Surgical History History of total hysterectomy History of section Family History Father No problems noted. Mother No problems noted. Brother No problems noted. Sister No problems noted. Daughter No problems noted. Son No problems noted. Maternal Grandmother Diabetes mellitus HTN (hypertension) Maternal Grandfather HTN (hypertension) Paternal Grandfather HTN (hypertension) Paternal Grandmother HTN (hypertension) Stroke Social History Housing: House Alcohol intake: never Patient Tobacco Use Status: Never used Tobacco e-Cigarette/Vaping Use: Never Used Second Hand Smoke Exposure: No service: No Current occupational status: employed Current occupation: [employer] Current occupational exposures/hazards: Yes Cognitive needs: No Hearing needs: No Vision needs: No Review of Systems Const All systems reviewed & are unremarkable except as noted in HPI and below Physical Exam Vital Signs: Last Vital Signs Temp 98.1 F 08/18/24 15:00 Pulse 72 08/18/24 15:00 BP 114/80 08/18/24 15:00 Pulse Ox 98 08/18/24 15:00 Oxygen Delivery Method Room Air 08/18/24 15:00 BMI result Body Mass Index 29.6 Const General: cooperative, healthy appearing, comfortable and no acute distress Orientation/consciousness: patient oriented x3 Limitations: no limitations HEENT Head: Yes normal to inspection Ears: hearing grossly normal bilaterally, external ears normal and TM abnormal retracted General nose exam: Normal external nose present, No nasal discharge present and Abnormal mucous membranes and turbinates present boggy and pale Face and sinus: Yes normal facial exam and Yes sinuses nontender Mouth: Normal oral and palatal mucosa present and moist mucous membranes Throat: Yes tonsils normal, Yes uvula midline, Yes posterior oropharynx abnormal (Erythema), Yes postnasal drainage and Yes cobblestoning Eyes General: appearance normal, both eyes and all related structures Neck Neck: Yes normal visual inspection Resp Effort & Inspection: normal respiratory effort, able to speak in complete sentences, Actively coughing, no respiratory distress, not tachypneic, no tripod positioning and no use of accessory muscles Auscultation: clear to auscultation bilaterally Cardio Rate: regular rate Rhythm: regular rhythm Heart sounds: normal S1 and S2 Skin General skin exam: no rashes or lesions noted Neuro General: patient oriented x3 Extrem General: Yes normal to inspection and Yes no clubbing, cyanosis or edema Assessment & Plan Assessment & Plan (1) Allergic rhinitis: Code(s): J30.9 - Allergic rhinitis, unspecified Qualifiers: Allergic rhinitis trigger: pollen Allergic rhinitis seasonality: seasonal Qualified Code(s): J30.1 - Allergic rhinitis due to pollen Plan: Supportive measures encouraged and reviewed. Advised patient to try a Flonase nasal spray and second-generation antihistamine such as Zyrtec, Claritin, Marianne or similar. Advised consideration of sinus rinse if needed. Advised patient to follow up with primary care provider with worsening or failure to resolve. Plan See above for full details and plan. Coding Level of Care Code Est Pt Level 3 (58287) Diagnoses Seasonal allergic rhinitis due to pollen J30.1 Allergic rhinitis trigger: pollen Allergic rhinitis seasonality: seasonal
[2024-08-18 15:00] VITALS: BP 114/80; PULSE 72; TEMP 36.7; O2SAT 98; BMI 29.6
== END 2024-08-18 15:18 | disposition home or self-care (01) ==
PROVIDERS: PCP Nurse Practitioner Family; Visit Provider Registered Nurse
DX: J30.1 Allergic rhinitis due to pollen (principal)

== ENCOUNTER → 2024-08-18 14:55 | Outpatient (BNVA) | payer OTHER, SELFPAY | PROVIDERS: PCP Nurse Practitioner Family; Visit Provider Registered Nurse ==

== ENCOUNTER 2024-09-29 08:21 | Outpatient (AMB) | payer OTHER, SELFPAY ==
--- NOTE | 2024-09-29 07:30 | MHC.PC.OV ---
Intake Visit Reasons: 2 month follow up Allergies No Known Allergies [No Known Allergies*] Allergy (Verified 08/18/24 15:00) Tobacco use date assessed: 12/04/23 Dental Screening Dental Screen Date: 12/04/23 HPI 2 month follow up HPI Details Depression and anxiety: Pt is seeing a therapist. She is now on a gluten free diet, which seems to help. Denies any SI and HI. Encouraged starting a walking routine for physical and psychological health [facility] Medical History Anxiety and depression Stenosis of left carotid artery Seizures Pannus, abdominal Surgical History History of total hysterectomy History of section Family History Father No problems noted. Mother No problems noted. Brother No problems noted. Sister No problems noted. Daughter No problems noted. Son No problems noted. Maternal Grandmother Diabetes mellitus HTN (hypertension) Maternal Grandfather HTN (hypertension) Paternal Grandfather HTN (hypertension) Paternal Grandmother HTN (hypertension) Stroke Social History Housing: House Alcohol intake: never Patient Tobacco Use Status: Never used Tobacco e-Cigarette/Vaping Use: Never Used Second Hand Smoke Exposure: No service: No Current occupational status: employed Current occupation: [employer] Current occupational exposures/hazards: Yes Cognitive needs: No Hearing needs: No Vision needs: No Questionnaire Thrive Questionnaire Date Thrive assessed: 12/04/23 RADHA-7 AMB Questionnaire RADHA-7 Date RADHA - 7 assessed: 12/04/23 Source: Developed by Drs. Arpan Richmond, Alysha Mitchell, Iván Pinto and colleagues, with an educational bharathi from [employer]. Review of Systems Const Reports as per HPI Physical exam (Primary Care) Tobacco/Smoking Status: Tobacco use Status Tobacco use date assessed 12/04/23 09/29/24 07:32 Patient Tobacco Use Status Never used Tobacco 09/29/24 07:32 e-Cigarette/Vaping Use Never Used 11/18/24 07:32 Thrive Assessment: Date of Thrive Assessment Date Thrive assessed 12/04/23 09/29/24 07:32 Const General: cooperative Orientation/consciousness: patient oriented x3 Neuro General: patient oriented x3 Psych Appearance: grossly normal Mental Status: mental status grossly normal Speech and movement: Clear speech present Affect: normal affect Attitude: cooperative Thought process: Normal thought process present Thought content: Normal thought content present Insight: Good insight present (Psych) Judgement: Good judgement present (Psych) Telehealth Telehealth Telehealth Platform: [employer] Location of provider rendering services: practice address Location of patient: address on file Patient Identification confirmed using: Name, : Yes Telehealth method: video Patient verbally consented to treatment: Yes Patient verbally consented to billing insurance company: Yes Patient informed of any privacy concerns related to visit: Yes Minutes spent on Phone/Video with Pt.: 15 Coding Level of Care Code Tele Est Pt Level 3 (99106) Diagnoses Anxiety and depression F41.9; F32.9 Assessment & Plan Assessment & Plan (1) Anxiety and depression: Code(s): F41.9 - Anxiety disorder, unspecified; F32.9 - Major depressive disorder, single episode, unspecified Category: Medical Plan: Seeing a therapist, doing well overall, recommend a walking routine Plan The patient agreed to the use of a medical staff manager for this encounter. Scribed for DOMINICK Copeland by Olena Almonte medical staff manager, on 09/29/2024 at 07:30 EST.
== END 2024-09-29 11:44 | disposition home or self-care (01) ==
LOC: HO.HMCC 08:22
PROVIDERS: PCP Nurse Practitioner Family; Visit Provider Nurse Practitioner Family
DX: F41.9 Anxiety disorder, unspecified (principal); F32.9 Major depressive disorder, single episode, unspecified

== ENCOUNTER 2024-12-09 07:51 | Outpatient (AMB) | payer OTHER, SELFPAY ==
--- NOTE | 2024-12-09 07:47 | MHC.OFFVIS ---
Intake Visit Reasons: follow up Allergies No Known Allergies [No Known Allergies*] Allergy (Verified 08/18/24 15:00) Medication List - Last Reconciled 12/09/24 by Tucker Haley [facility]- albuterol sulfate 90 mcg/actuation (Ventolin HFA) 1 inh inhalation QID PRN 10 days biotin (Hair, Skin and Nails (biotin)) mcg PO calcium carbonate 1,000 mg PO DAILY clotrimazole-betamethasone 1-0.05 % 1 appl topical BID 2 weeks epinephrine (EpiPen 2-Carter) 0.3 mg (0.3 mL) IM Q10M PRN 30 days estradiol 2 mg PO BID hydroxyzine HCl 10 mg PO BID PRN 30 days lamotrigine 200 mg PO BID 90 days mecobalamin (vitamin B12) mcg PO ofloxacin 0.3% (Ocuflox) put 1-2 drps into affected eye(s) every 2-4 h x 2 days, then 1-2 drps 4 times/day days 3-7 ophthalmic (eye) HPI HPI follow up: Details: History of Present Illness The patient is a 34-year-old female presenting with conjunctivitis. She experienced crusting in her left eye upon waking this morning, which caused the eye to be sealed shut. In addition to this, she reports symptoms of redness, itching, discomfort, and slight discharge. This is suggestive of conjunctivitis, either allergic or bacterial in origin. Her symptoms began this morning, and she denies having experienced similar symptoms in the past. It is noted that her children are also unwell at this time. The substantial crusting is localized to the left eye. Review of Systems - Eyes: Reports crusting, redness, itching, and discharge in the left eye. PE: A+Ox3 sclera is erythematous, no active swelling around eye, or signs of cellulitis. Plan - Initiate treatment with ophthalmic drops prescribed for suspected conjunctivitis. Ensure adequate supply for both eyes although symptoms are presently more severe in the left eye. Patient was informed and verbally consented to the use of an ambient scribe for clinic note documentation during this visit. Discussion Notes I discussed with the patient that the presentation of crusting, itching, and redness strongly suggests conjunctivitis, which may be allergic or bacterial. I explained the treatment regimen involving ophthalmic drops and made sure the patient understood how to administer them effectively. I also provided a leave note for her workplace, considering her need to manage her symptoms and care for her unwell children. The importance of completing the treatment course even if symptoms improve was emphasized. Patient Instructions - Apply ophthalmic drops as prescribed to both eyes. - Keep the eyes clean and avoid rubbing to prevent further irritation. - Monitor the symptoms and contact us if they worsen or do not improve. - Utilize the work leave note provided for necessary absence. [facility] Medical History Anxiety and depression Stenosis of left carotid artery Seizures Pannus, abdominal Surgical History History of total hysterectomy History of section Family History Father No problems noted. Mother No problems noted. Brother No problems noted. Sister No problems noted. Daughter No problems noted. Son No problems noted. Maternal Grandmother Diabetes mellitus HTN (hypertension) Maternal Grandfather HTN (hypertension) Paternal Grandfather HTN (hypertension) Paternal Grandmother HTN (hypertension) Stroke Social History Housing: House Alcohol intake: never Patient Tobacco Use Status: Never used Tobacco e-Cigarette/Vaping Use: Never Used Second Hand Smoke Exposure: No service: No Current occupational status: employed Current occupation: [employer] Current occupational exposures/hazards: Yes Cognitive needs: No Hearing needs: No Vision needs: No Telehealth Telehealth Telehealth Platform: [facility] Location of provider rendering services: practice address Location of patient: address on file Patient Identification confirmed using: Name, : Yes Telehealth method: video Patient verbally consented to treatment: Yes Patient verbally consented to billing insurance company: Yes Patient informed of any privacy concerns related to visit: Yes Minutes spent on Phone/Video with Pt.: 12 Assessment & Plan Assessment & Plan (1) Conjunctivitis: Code(s): H10.9 - Unspecified conjunctivitis Category: Medical Plan . Medications: New ofloxacin 0.3% (Ocuflox) put 1-2 drps into affected eye(s) every 2-4 h x 2 days, then 1-2 drps 4 times/day days 3-7 ophthalmic (eye) 10 mL 0RF Coding Level of Care Code Tele Est Pt Level 3 (25711) Diagnoses Conjunctivitis H10.9
== END 2024-12-09 14:18 | disposition home or self-care (01) ==
LOC: HO.HMCC 07:51
PROVIDERS: PCP Nurse Practitioner Family; Visit Provider Nurse Practitioner Family
DX: H10.89 Other conjunctivitis (principal)

== ENCOUNTER 2025-01-10 08:18 | Outpatient (REF) | payer OTHER, SELFPAY ==
[2025-01-10 11:46] LABS: MANUAL DIFF FLAG NO
[2025-01-10 12:00] LABS: Basophils Percent Auto 0.7 % (0-2); Eosinophils Absolute Auto 0.1 X10*3/uL (0.0-0.4); Eosinophils Percent Auto 2.2 % (0-4); Hematocrit 39.7 % (37.0-47.0); Hemoglobin 13.2 g/dl (12.0-16.0); Imm Gran Abs Auto 0.01 X10*3/uL (0.00-0.03); Imm Gran Pct Auto 0.2 % (0.0-0.4); Lymphocytes Absolute Auto 2.5 X10*3/uL (1.2-4.9); Lymphocytes Percent Auto 53.8 % (20-40); Mean Corpuscular HGB Conc 33.2 g/dl (31.0-35.0); Mean Corpuscular Hemoglobin 28.4 pg (27.0-33.0); Mean Corpuscular Volume 85.4 fL (80.0-98.0); Mean Platelet Volume 9.1 fL (9.4-12.3); Monocytes Absolute Auto 0.4 X10*3/uL (0.1-1.2); Monocytes Percent Auto 8.1 % (2-11); Neutrophils Absolute Auto 1.6 x10*3/uL (2.0-8.3); Platelet Count 288 X10*3/uL (160-400); Red Blood Count 4.65 X10*6/uL (4.20-5.50); Red Cell Distribution Width 12.9 % (11.0-16.0); White Blood Count 4.6 X10*3/uL (4.8-10.8)
[2025-01-10 12:26] LABS: Alanine Aminotransferase 17 U/L (0-31); Albumin Level 3.8 g/dL (3.5-5.0); Alkaline Phosphatase 59 U/L (39-117); Anion Gap 11 (12-20); Aspartate Amino Transferase 18 U/L (5-31); Bilirubin Total 0.5 mg/dL (0.0-1.0); Blood Urea Nitrogen 12 mg/dL (9-16); Carbon Dioxide 23 mmol/L (22-29); Chloride 109 mmol/L (96-108); Cholesterol 214 mg/dL (<200); Estimated Glomerular Filt Rate > 60; Glucose Fasting 83 mg/dL (60-99); HDL Cholesterol 62 mg/dL (>40); LDL Cholesterol Calculated 128 mg/dL (<100); Potassium 3.7 mmol/L (3.3-5.1); Sodium 139 mmol/L (135-145); Total Protein 7.2 g/dL (6.5-8.0); Triglycerides 124 mg/dL (<150)
[2025-01-10 12:44] LABS: TSH reflex Free T4 0.95 uIU/mL (0.32-4.0)
[2025-01-10 12:52] LABS: Folate 9.3 ng/mL (> or = 4.0); Vitamin B12 1686 pg/mL (200-900)
== END 2025-01-10 08:19 | disposition home or self-care (01) ==
LOC: HO.HMGCLDS 08:18
PROVIDERS: PCP Nurse Practitioner Family; Visit Provider Nurse Practitioner Family
DX: R11.0 Nausea (principal); Z78.9 Other specified health status
CPT/HCPCS: 36415; 80053; 80061; 82607; 82746; 84443; 85025

== ENCOUNTER 2025-02-03 14:59 | Outpatient (REF) | payer OTHER, SELFPAY ==
[2025-02-03 16:16] LABS: MANUAL DIFF FLAG NO
[2025-02-03 16:30] LABS: Basophils Percent Auto 0.5 % (0-2); Eosinophils Absolute Auto 0.1 X10*3/uL (0.0-0.4); Eosinophils Percent Auto 1.1 % (0-4); Hematocrit 37.9 % (37.0-47.0); Hemoglobin 12.9 g/dl (12.0-16.0); Imm Gran Abs Auto 0.01 X10*3/uL (0.00-0.03); Imm Gran Pct Auto 0.2 % (0.0-0.4); Lymphocytes Absolute Auto 3.1 X10*3/uL (1.2-4.9); Lymphocytes Percent Auto 50.2 % (20-40); Mean Corpuscular Hemoglobin 28.4 pg (27.0-33.0); Mean Corpuscular Volume 83.3 fL (80.0-98.0); Mean Platelet Volume 8.9 fL (9.4-12.3); Monocytes Absolute Auto 0.4 X10*3/uL (0.1-1.2); Monocytes Percent Auto 5.9 % (2-11); Neutrophils Absolute Auto 2.6 x10*3/uL (2.0-8.3); Neutrophils Percent Auto 42.1 % (45-73); Platelet Count 285 X10*3/uL (160-400); Red Blood Count 4.55 X10*6/uL (4.20-5.50); Red Cell Distribution Width 12.6 % (11.0-16.0); White Blood Count 6.1 X10*3/uL (4.8-10.8)
[2025-02-03 16:51] LABS: Alanine Aminotransferase 19 U/L (0-31); Albumin Level 3.9 g/dL (3.5-5.0); Alkaline Phosphatase 59 U/L (39-117); Anion Gap 8 (12-20); Aspartate Amino Transferase 20 U/L (5-31); Bilirubin Total 0.5 mg/dL (0.0-1.0); Blood Urea Nitrogen 10 mg/dL (9-16); Calcium 9.2 mg/dL (8.4-10.2); Carbon Dioxide 26 mmol/L (22-29); Chloride 107 mmol/L (96-108); Estimated Glomerular Filt Rate > 60; Glucose Random 88 mg/dL (60-115); Sodium 137 mmol/L (135-145); Total Protein 6.7 g/dL (6.5-8.0)
== END 2025-02-03 15:00 | disposition home or self-care (01) ==
LOC: HO.HMGCLDS 14:59
PROVIDERS: PCP Nurse Practitioner Family; Visit Provider Nurse Practitioner Family
DX: R19.7 Diarrhea, unspecified (principal)
CPT/HCPCS: 36415; 80053; 85025

== ENCOUNTER 2025-03-19 14:22 | Outpatient (AMB) | payer OTHER, SELFPAY ==
--- NOTE | 2025-03-19 14:29 | MHC.AMNUTRGE ---
VS Expanded 03/19/25 14:35 03/25/25 09:14 Height 5 ft 5 in 5 ft 5 in Weight 166 lb 10.711 oz 167 lb BMI 27.7 27.8 Intake Visit Reasons: Nutritional deficiency Allergies No Known Allergies [No Known Allergies*] Allergy (Verified 08/18/24 15:00) Nutrition Presentation Details: Pt presents for MNT for poor diet with dyslipidemia. Pt reports no longer having dairy due to developing diarrhea and vomiting after consuming dairy therefore choosing non dairy alternatives. Pt reports following a vegan diet and has been following a Gluten free diet for 10 yrs Typical meal intake GF waffle with peanut butter ,water or seltzer water snack banana lunch home made vegan breakfast bars (coconut sugar/oats/syrup/fruit snack tortilla chips /cashew GF pasta marinara sauce and sometimes veggies salads chocolate muffins take calcium supplements 500 mg /d, stopped taking b12 supplements due to elevated blood work result Pt denies GI symptoms except when consuming dairy BS Monitoring Most Recent Diabetes Results: Cholesterol 214 mg/dL (<200) H 01/10/25 HDL Cholesterol 62 mg/dL (>40) 01/10/25 Triglycerides 124 mg/dL (<150) 01/10/25 Creatinine 0.72 mg/dL (0.5-1.4) 02/03/25 Blood Urea Nitrogen 10 mg/dL (9-16) 02/03/25 Sodium 137 mmol/L (135-145) 02/03/25 Potassium 4.0 mmol/L (3.3-5.1) 02/03/25 Chloride 107 mmol/L (96-108) 02/03/25 Carbon Dioxide 26 mmol/L (22-29) 02/03/25 Calcium 9.2 mg/dL (8.4-10.2) 02/03/25 AST 20 U/L (5-31) 02/03/25 ALT 19 U/L (0-31) 02/03/25 Total Protein 6.7 g/dL (6.5-8.0) 02/03/25 Albumin 3.9 g/dL (3.5-5.0) 02/03/25 HUO-Xcfzbsi-Bc.Jeor Equation Height: 5 ft 5 in Weight: 167 lb Resting Metabolic Rate: 1445.58 Calculated Activity Level: Mild Activity Calories Needed to Maintain Weight: 1986.67 Diagnosis Nutrition problem #1: altered nutrition labs As related to (etiology) #1: diagnosis As evidenced by (sign/symptom) #1: abnormal lab values (elevated cholesterol) [facility] Medical History Anxiety and depression Stenosis of left carotid artery Seizures Pannus, abdominal Surgical History History of total hysterectomy History of section Family History Father No problems noted. Mother No problems noted. Brother No problems noted. Sister No problems noted. Daughter No problems noted. Son No problems noted. Maternal Grandmother Diabetes mellitus HTN (hypertension) Maternal Grandfather HTN (hypertension) Paternal Grandfather HTN (hypertension) Paternal Grandmother HTN (hypertension) Stroke Social History Housing: House Alcohol intake: never Patient Tobacco Use Status: Never used Tobacco e-Cigarette/Vaping Use: Never Used Second Hand Smoke Exposure: No service: No Current occupational status: employed Current occupation: [employer] Current occupational exposures/hazards: Yes Cognitive needs: No Hearing needs: No Vision needs: No Assessment & Plan Assessment & Plan (1) Dyslipidemia: Code(s): E78.5 - Hyperlipidemia, unspecified Category: Medical Plan: Wt: 76 Kg ( 04/05 ) Est kcal needs as per MSJ: 1900 (40% carb, 30% protein/fat) Est fluid needs as per 25-30 ml/d: 2300 Est prot per day as per 1 g/kg bw: 76 Recommend fiber intake : 8-10 g per day and gradually increase to 25-28 g per day for women and 35-38 g for men or as tolerated Recommend sodium intake per day : less than 2000 mg Educated patient on: ( R = reviewed V = verbalizes understanding N/R = needs review N/A = not applicable Food sources of carbohydrate, adequate serving sizes and its role in various health conditions: R V N/R Differences between complex carbohydrates a simple carbohydrates, role of fiber in diet: R Lean plant protein sources of foods : R Differences between types of fats and role in diet (mono on saturated fat fatty acids, saturated fatty acids, trans fats): R Food sources of sodium in salt and healthy modifications for heart health in kidney health: R V R/V Vitamins and minerals: R V N/R Healthy plate method concept: R V N/R Physical activity: Benefits a precaution: R V N/R Patient Instructions: Choose monounsaturated fats such as olive oil, avocado , nuts, seeds in adequate amounts, reduce on tropical oils see 1900 renee meal plan low in saturated fats and high in fiber next f/u mvi, calcium rich foods- non dairy Coding Level of Care Code Nutr Indiv Intake (56583) Diagnoses Dyslipidemia E78.5 Time Spent (min) 30
[2025-03-19 14:35] VITALS: BMI 27.7
[2025-03-25 09:14] VITALS: BMI 27.8
== END 2025-03-19 15:14 | disposition home or self-care (01) ==
LOC: HO.ENCR 14:22
PROVIDERS: PCP Nurse Practitioner Family; Visit Provider Dietitian, Registered
DX: E78.5 Hyperlipidemia, unspecified (principal)

== ENCOUNTER → 2025-03-19 14:22 | Outpatient (BNVA) | payer OTHER, SELFPAY | PROVIDERS: PCP Nurse Practitioner Family; Visit Provider Dietitian, Registered | DX: E78.5 Hyperlipidemia, unspecified (principal); Z71.3 Dietary counseling and surveillance | CPT/HCPCS: 97802 ==

== ENCOUNTER 2025-04-09 15:02 | Outpatient (AMB) | payer OTHER, SELFPAY ==
[2025-04-09 15:15] VITALS: BP 134/70; PULSE 77; RESP 14; TEMP 36.7; O2SAT 99; BMI 28.0
--- NOTE | 2025-04-09 15:15 | MHC.PC.OV ---
Vital Signs 04/09/25 15:15 Height 5 ft 5 in Weight 168 lb BMI 28.0 BP 134/70 Respiration 14 Pulse 77 Pulse Source Pulse Oximeter Temp 98.0 F Temp Source Oral Pulse Oximetry (%) 99 Oxygen Delivery Method Room Air Intake Visit Reasons: 4m F/U Shredded Filler Hopper Feeder Required: No Accompanied by: Self / Same As Patient Allergies prednisone Allergy (Mild, Verified 04/09/25 16:27) paranoid Medication List - Last Reconciled 04/09/25 by LEEANNA Winter- albuterol sulfate 90 mcg/actuation (Ventolin HFA) 1 inh inhalation QID PRN 10 days biotin (Hair, Skin and Nails (biotin)) mcg PO calcium carbonate 1,000 mg PO DAILY clotrimazole-betamethasone 1-0.05 % 1 appl topical BID 2 weeks epinephrine (EpiPen 2-Carter) 0.3 mg (0.3 mL) IM Q10M PRN 30 days estradiol 2 mg PO BID hydroxyzine HCl 10 mg PO BID PRN 30 days lamotrigine 200 mg PO BID 90 days mecobalamin (vitamin B12) mcg PO Tobacco use date assessed: 04/09/25 Dental Screening Dental Screen Date: 04/09/25 Did you have a dental visit in the last 12 months?: Yes Did you have a dental problem in the last 6 months where you did not have access to dental care?: No Was dental information given to patient?: Patient has dentist HPI 4m F/U HPI Details Chief Complaint The patient reports stress-induced discomfort and numbness in the left upper extremity and chest tightness. History of Present Illness The patient is a 35-year-old female presenting with stress management concerns and related physical symptoms. She reports discomfort and numbness in her left upper extremity and chest tightness during periods of stress. 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 The patient finds support in regular therapy sessions, which she has been attending for five years. Initial evaluation included an order for an EKG to assess her symptoms further, and she showed improvement after discussing her stressors during the visit. 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 - Recent financial stress related to purchasing a recreational vehicle - Mother of high school and middle school-aged children - Engages in regular therapy sessions for stress management Health Maintenance Review of Systems - Cardiovascular: Reports chest tightness associated with stress - Neurological: Reports discomfort and numbness in the left upper extremity associated with stress - Psychological: Reports feeling stressed; managing well with therapy Physical Exam General: Cooperative, healthy appearing, comfortable, no acute distress and well developed Orientation: Patient oriented x3 Limitations: No limitations Head: Normal to inspection Ears: Hearing grossly normal bilaterally Nose: Normal external nose present Face and sinus: Normal facial exam Eyes: Appearance normal, both eyes and all related structures Neck: Normal visual inspection and Yes full ROM Respiratory: Normal respiratory effort and able to speak in complete sentences. Clear to auscultation bilaterally Cardiovascular: Regular rate and rhythm. Normal S1 and S2 GI: Normal to inspection. Soft to palpation and nontender Skin: No rashes or lesions noted Neuro: Patient oriented x3 Extremities: Normal to inspection Results - Tests and Diagnostics: EKG ordered Plan The patient presented with stress-induced symptoms, including left upper extremity discomfort and chest tightness. An EKG was ordered to further evaluate these symptoms related to stress. She attributes her stress to recent financial strain and a hectic work environment. The patient has been managing stress through regular therapy, which has been beneficial. She showed improvement after discussing her concerns during the visit. Continued regular therapy sessions and monitoring of her symptoms are planned, with the EKG to assist in assessing any potential cardiac issues. Discussion Notes I discussed with the patient the likely stress-related nature of her symptoms, including discomfort and numbness in her left upper extremity and chest tightness. We reviewed the plan to obtain an EKG to assess her chest symptoms further. The benefits of continued therapy for stress management were emphasized, and the patient expressed satisfaction with her current therapeutic support. We discussed that her stress is influenced by recent financial difficulties and her work environment, along with management strategies. Follow-up will be based on EKG results and symptom progression. Patient Instructions - Continue attending regular therapy sessions. - Monitor and manage stressors as much as possible. - Follow up with EKG results as advised. - Seek medical attention if symptoms worsen or new symptoms arise. [facility] Medical History Anxiety and depression Stenosis of left carotid artery Seizures Pannus, abdominal Surgical History History of total hysterectomy History of section Family History Father No problems noted. Mother No problems noted. Brother No problems noted. Sister No problems noted. Daughter No problems noted. Son No problems noted. Maternal Grandmother Diabetes mellitus HTN (hypertension) Maternal Grandfather HTN (hypertension) Paternal Grandfather HTN (hypertension) Paternal Grandmother HTN (hypertension) Stroke Social History Housing: House Alcohol intake: never Patient Tobacco Use Status: Never used Tobacco e-Cigarette/Vaping Use: Never Used Second Hand Smoke Exposure: No service: No Current occupational status: employed Current occupation: [email or web address] Current occupational exposures/hazards: Yes Cognitive needs: No Hearing needs: No Vision needs: Yes (rx glasses) Questionnaire PHQ-9 Over the last 2 weeks, how often have you been bothered by any of the following problems? 1. Little interest or pleasure in doing things: not at all 2. Feeling down, depressed, or hopeless: not at all 3. Trouble falling or staying asleep, or sleeping too much: not at all 4. Feeling tired or having little energy: not at all 5. Poor appetite or overeating: not at all 6. Feeling bad about yourself - or that you are a failure or have let yourself or your family down: not at all 7. Trouble concentrating on things, such as reading the newspaper or watching television: not at all 8. Moving or speaking so slowly that other people could have noticed. Or the opposite - being so fidgety or restless that you have been moving around a lot more than usual: not at all 9. Thoughts that you would be better off or of hurting yourself in some way: not at all Total score: 0 Source: Developed by Drs. Arpan Richmond, Alysha Mitchell, Iván Pinto and colleagues, with an educational bharathi from [employer]. Thrive Questionnaire Date Thrive assessed: 04/02/25 I am a: Patient What is your living situation today?: I have a steady place to live Within the past 12 months, did the food you bought not last and you didn't have the money to get more?: Never true Within the past 12 months, did you worry whether your food would run out before you got money to buy more?: Never true Do you have trouble paying for medicines?: No Do you have trouble getting transportation to medical appointments?: No Do you have trouble paying your heating and electricity bill?: No Do you have trouble taking care of your child, family member or friend?: No Do you have trouble with day-to-day activities such as bathing, preparing meals, shopping, managing finances, etc.?: No Are you currently unemployed and looking for a job?: No Are you interested in more education?: No Please select the resources that you would like help with: None Currently or been in a relationship where the following occur: I choose not to answer THRIVE Score: 0 AUDIT C Alcohol Use Questionnaire (AUDIT-C) 1. How often do you have a drink containing alcohol?: Never 3. How often do you have six or more drinks on one occasion?: Never Total Score: 0 RADHA-7 AMB Questionnaire RADHA-7 Date RADHA - 7 assessed: 04/09/25 Feeling nervous, anxious, or on edge: 0 = Not at all Not being able to stop or control worryin = Not at all Worrying too much about different things: 0 = Not at all Trouble relaxin = Not at all Being so restless that it is hard to sit still: 0 = Not at all Becoming easily annoyed or irritable: 0 = Not at all Feeling afraid as if something awful might happen: 0 = Not at all Total RADHA-7 score (0-4 normal; 5-9 mild; 10-14 moderate; 15-21 severe): 0 Source: Developed by Drs. Arpan Richmond, Alysha Mitchell, Iván Pinto and colleagues, with an educational bharathi from [employer]. Physical exam (Primary Care) Vital Signs: Last Vital Signs Temp 98.0 F 04/09/25 15:15 Pulse 77 04/09/25 15:15 Resp 14 04/09/25 15:15 BP 134/70 04/09/25 15:15 Pulse Ox 99 04/09/25 15:15 Oxygen Delivery Method Room Air 04/09/25 15:15 BMI result Body Mass Index 28.0 Tobacco/Smoking Status: Tobacco use Status Tobacco use date assessed 04/09/25 04/09/25 15:18 Patient Tobacco Use Status Never used Tobacco 04/09/25 15:18 e-Cigarette/Vaping Use Never Used 04/09/25 15:18 PHQ-9: PHQ-9 Score PHQ-9: Total score 0 04/09/25 15:58 Thrive Assessment: Date of Thrive Assessment Date Thrive assessed 04/02/25 04/09/25 15:18 Currently or been in a relationship where the following occur: I choose not to answer Office Procedures EKG 74133-[id number], Complete Coding Level of Care Code Est Pt Level 4 (08021) Diagnoses Chest discomfort R07.89 CPT Codes EKG - CPT: 64289-[id number], Complete ([id number]) Assessment & Plan Assessment & Plan (1) Chest discomfort: Code(s): R07.89 - Other chest pain Category: Medical Plan . Orders: Orders AMB EKG-In Office Today R07.89 - Other chest pain
== END 2025-04-09 16:38 | disposition home or self-care (01) ==
LOC: HO.HMCC 15:02
PROVIDERS: PCP Nurse Practitioner Family; Visit Provider Nurse Practitioner Family
DX: R07.89 Other chest pain (principal)

== ENCOUNTER → 2025-04-09 15:02 | Outpatient (BNVA) | payer OTHER, SELFPAY | PROVIDERS: PCP Nurse Practitioner Family; Visit Provider Nurse Practitioner Family | DX: R07.89 Other chest pain (principal) | CPT/HCPCS: 93005; 96127 ==

== ENCOUNTER 2025-05-11 06:46 | Outpatient (AMB) | payer OTHER, SELFPAY ==
--- NOTE | 2025-05-11 07:59 | A.OFFPC_ITS ---
Intake Visit Reasons: follow up tv Allergies prednisone Allergy (Mild, Verified 05/11/25 08:23) paranoid Medication List - Last Reconciled 05/11/25 by KAYLEIGH WinterP- albuterol sulfate 90 mcg/actuation (Ventolin HFA) 1 inh inhalation QID PRN 10 days biotin (Hair, Skin and Nails (biotin)) mcg PO calcium carbonate 1,000 mg PO DAILY clotrimazole-betamethasone 1-0.05 % 1 appl topical BID 2 weeks epinephrine (EpiPen 2-Carter) 0.3 mg (0.3 mL) IM Q10M PRN 30 days estradiol 2 mg PO BID hydroxyzine HCl 10 mg PO BID PRN 30 days lamotrigine 200 mg PO BID 90 days mecobalamin (vitamin B12) mcg PO Tobacco use date assessed: 04/09/25 Dental Screening Dental Screen Date: 04/09/25 HPI follow up tv HPI Details History of Present Illness The patient is a 35-year-old female presenting with psychological stress related to her recent divorce. This stress began a couple of weeks ago when her indicated his intention to end the marriage. She is currently attending therapy sessions and has her next appointment scheduled for tomorrow. She has a supportive family and two children who will also be receiving therapy soon. The patient denies any suicidal or homicidal ideation and is encouraged to focus on her own needs and those of her children. She plans to engage with a production support specialist with her to discuss future plans. Review of Systems - Psychiatric: Reports psychological str ess due to divorce. Denies suicidal ideation, denies homicidal ideation. Plan The patient is advised to continue attending therapy sessions to help manage her psychological stress related to the divorce. She is encouraged to maintain her support system and focus on her own needs and those of her children. The patient is also advised to engage with a production support specialist alongside her to discuss future plans and arrangements. Discussion Notes I discussed with the patient the importance of continuing her therapy sessions and maintaining her support system to manage her stress effectively. We also talked about the benefits of engaging with a production support specialist to facilitate discussions with her regarding future plans. Patient Instructions - Continue attending therapy sessions re gularly. - Maintain communication with your suppo rt system. - Engage with a production support specialist to discuss futu re plans with your . [facility] Medical History Anxiety and depression Stenosis of left carotid artery Seizures Pannus, abdominal Surgical History History of total hysterectomy History of section Family History Father No problems noted. Mother No problems noted. Brother No problems noted. Sister No problems noted. Daughter No problems noted. Son No problems noted. Maternal Grandmother Diabetes mellitus HTN (hypertension) Maternal Grandfather HTN (hypertension) Paternal Grandfather HTN (hypertension) Paternal Grandmother HTN (hypertension) Stroke Social History Housing: House Alcohol intake: never Patient Tobacco Use Status: Never used Tobacco e-Cigarette/Vaping Use: Never Used Second Hand Smoke Exposure: No service: No Current occupational status: employed Current occupation: [employer] Current occupational exposures/hazards: Yes Cognitive needs: No Hearing needs: No Vision needs: Yes (rx glasses) Questionnaire Thrive Questionnaire Date Thrive assessed: 04/02/25 I am a: Patient What is your living situation today?: I have a steady place to live Within the past 12 months, did the food you bought not last and you didn't have the money to get more?: Never true Within the past 12 months, did you worry whether your food would run out before you got money to buy more?: Never true Do you have trouble paying for medicines?: No Do you have trouble getting transportation to medical appointments?: No Do you have trouble paying your heating and electricity bill?: No Do you have trouble taking care of your child, family member or friend?: No Do you have trouble with day-to-day activities such as bathing, preparing meals, shopping, managing finances, etc.?: No Are you currently unemployed and looking for a job?: No Are you interested in more education?: No THRIVE Score: 0 RADHA-7 AMB Questionnaire RADHA-7 Date RADHA - 7 assessed: 04/09/25 Source: Developed by Drs. Arpan Richmond, Alysha Iván Valente and colleagues, with an educational bharathi from [employer]. Physical exam (Primary Care) Tobacco/Smoking Status: Tobacco use Status Tobacco use date assessed 04/09/25 04/09/25 15:18 Patient Tobacco Use Status Never used Tobacco 04/09/25 15:18 e-Cigarette/Vaping Use Never Used 04/09/25 15:18 Thrive Assessment: Date of Thrive Assessment Date Thrive assessed 04/02/25 04/09/25 15:18 Telehealth Telehealth Telehealth Platform: [employer] Location of provider rendering services: practice address Location of patient: address on file Patient Identification confirmed using: Name, : Yes Telehealth method: video Patient verbally consented to treatment: Yes Patient verbally consented to billing insurance company: Yes Patient informed of any privacy concerns related to visit: Yes Minutes spent on Phone/Video with Pt.: 30 Coding Level of Care Code Tele Est Pt Level 4 (20412) Diagnoses Stress due to family tension Z63.8 Divorce Z63.5 Assessment & Plan Assessment & Plan (1) Stress due to family tension: Code(s): Z63.8 - Other specified problems related to primary support group Category: Medical (2) Divorce: Code(s): Z63.5 - Disruption of family by separation and divorce Category: Social Hx Plan .
== END 2025-05-11 08:13 | disposition home or self-care (01) ==
LOC: HO.HMCC 06:47
PROVIDERS: PCP Nurse Practitioner Family; Visit Provider Nurse Practitioner Family
DX: Z63.8 Other specified problems related to primary support group (principal); Z63.5 Disruption of family by separation and divorce

== ENCOUNTER → 2025-05-11 06:46 | Outpatient (BNVA) | payer OTHER, SELFPAY | PROVIDERS: PCP Nurse Practitioner Family; Visit Provider Nurse Practitioner Family | DX: Z13.89 Encounter for screening for other disorder (principal) ==

== ENCOUNTER 2025-08-10 06:39 | Outpatient (AMB) | payer OTHER, SELFPAY ==
--- OUTSIDE RECORDS SUMMARY | 2025-08-10 06:43 | XMS_ITS | Clinical Summary ---
Author Organization [facility] Address [address] [place] [address] Phone Care Team Providers Care Assistant Boiler Operator Name Role Phone Crystal Tian NP Unavailable [phone] Krysten Ozuna DO Unavailable Aisha Castañeda RDCS Unavailable [email or web address] Vale Kaba MD Unavailable Randa Bridges MD Unavailable Hang Esparza MD Unavailable [phone] Gunjan Sigala MD Unavailable Tucker Haley [employer] Primary Care Provider + Allergies Active Allergy Reactions Criticality Noted Date Comments Adhesive 05/31/2023 Lactose Diarrhea Low 03/03/2025 Venom-Honey Bee 05/31/2023 Medications CALCIUM ORAL Take by mouth. Active cyanocobalamin, vitamin B-12, (VITAMIN B-12 ORAL) Take by mouth. Active Medication-Free Text Hair, skin, nails vitamin Active hydrOXYzine HCL (ATARAX) 10 MG tablet Take 10 mg by mouth as needed. 07/31/2023 Active meloxicam (MOBIC) 15 MG tablet Take 1 tablet by mouth every morning. 10/08/2023 Active estradioL (ESTRACE) 2 MG tabletIndicatio ns:Menopausal syndrome Take 1 tablet (2 mg total) by mouth 2 (two) times a day. 180 tablet 3 03/03/2025 Active lamoTRIgine (LAMICTAL) 200 MG IMMEDIATE release tabletIndicatio ns:Seizures Take 1 tablet (200 mg total) by mouth 2 (two) times a day. 180 tablet 3 03/12/2025 Active Active Problems Problem Noted Date Diagnosed Date Menopausal syndrome 05/31/2023 Assessment & Plan (03/03/2025 12:15 PM EDT): I did recommend decreasing the dose of the estradiol to 2 mg daily but she is very reluctant to do so as she does poorly with these lower doses. I explained it is reasonable to continue with this for now but next year we really should give consideration to decreasing the dose. Assessment & Plan (10/12/2023 3:01 PM EST): Her current dose of ERT is working well for her, 2 mg twice a day. At some point in the future, probably she is in her 40s, we may want to consider decreasing the estradiol dose to see how she does. At the present time, we will continue with the current regimen. Assessment & Plan (05/31/2023 10:43 AM EDT): She is currently taking 2 mg of estradiol twice daily. She reports that she had recent blood work done that shows her hormone levels were in a normal range. She was started on gabapentin 300 mg p.o. nightly about 1 year ago to see if this would help with some of the hot flashes that she was still having despite her normal levels of estrogen on her current dose of ERT. She notes that she continues to have some intermittent hot flashes, some of which are more bothersome than others. I do not have a complete copy of her records from [facility]. We will review them as they come in. She does retain her cervix and she thinks that she is due for Pap in the near future. She will make a follow-up appointment for an annual exam towards the end of the year. In the interim, she was instructed to contact us if the hot flashes worsen and we could consider going up on the dose of gabapentin. Family History Medical History Relation Comments CV disease Maternal Grandfather 2 Diabetes mellitus Maternal Grandmother 2 CV disease Paternal Grandfather 2 Diabetes mellitus Paternal Grandfather 2 Relation Status Comments Maternal Grandfather 1 Alive Maternal Grandfather 2 Maternal Grandmother 1 Alive Maternal Grandmother 2 Paternal Grandfather 1 Paternal Grandfather 2 Social History Tobacco Use Types Packs/Day Years Used Date Smoking Tobacco: Never Smokeless Tobacco: Never Tobacco Cessation:Counseling Given: Not Answered Alcohol Use Standard Drinks/Week Comments Not Currently 0 (1 standard drink = 0.6 oz pur e alcohol) Education Answer Date Recorded Are you interested in more education? Not on tamara e 03/09/2023 Are you concerned about learning? Not on file 03/09/2023 No 03/09/2023 No 03/09/2023 Digital Access Answer Date Recorded No 04/09/2023 No 04/09/2023 Reliable internet access at home? Not on file 04/09/2023 Device with a working camera? Not on file Comments No Sex and Gender Information Value Date Recorded Sex Assigned at Not on file Legal Sex Female 9:09 PM EDT Gender Identity Not on file Sexual Orientation Not on file Last Filed Vital Signs Vital Sign Reading Time Taken Comments Blood Pressure 120/70 03/12/2025 9:18 AM EDT Pulse 66 03/12/2025 9:18 AM EDT Temperature - - Respiratory Rate - - Oxygen Saturation 100% 03/12/2025 9:18 AM EDT Inhaled Oxygen Concentration - - Weight 75.2 kg (165 lb 12.8 oz) 03/12/2025 9:18 AM EDT Height 165.1 cm (5' 5 ) 03/12/2025 9:18 AM EDT Body Mass Index 27.59 03/12/2025 9:18 AM EDT Plan of Treatment Upcoming Encounters Date Type Department Care Team (Late st Contact Info) Description 12/14/2025 8:30 AM EST Office Visit [facility] Neurology [address] [place] [address] Hang Dougherty MD [address] [place] [address] Health Maintenance Due Date Last Done Comments DEPRESSION SCREENING 2000 HEPATITIS C SCREENING 2006 HIV ONE-TIME SCREENING (18-6 5 YEARS) 2006 SCREENING FOR DIABETES 2023 Adult Td,Tdap Booster 02/13/2024 02/12/2014 INFLUENZA VACCINE (#1) 2025 08/15/2021 COVID-19 VACCINE (2024-2 6 season) 2025 10/29/2021, 02/27/2021, 02/05/2021 PAP SMEAR 10/12/2026 10/12/2023 SMOKING STATUS SCREENING (On ce After 26 Yrs) Completed 03/03/2025 HEPATITIS A VACCINES Aged Out No long er eligible based on patient's age to complete this topic HIB VACCINES Aged Out No longer eligi ble based on patient's age to complete this topic MENINGOCOCCAL VACCINES (ACWY) Aged Out No longer eligible based on patient's age to complete this topic MENINGOCOCCAL VACCINES (B) Aged Out N o longer eligible based on patient's age to complete this topic PNEUMOCOCCAL VACCINES (0-49 years) Aged Out No longer eligible b ased on patient's age to complete this topic Medical Devices Not on file Procedures Procedure Name Priority Date/Time Associated Diagnosis Comments PAP TEST Routine 10/12/2023 12:00 AM EST from Last 3 Months or Most Recently Relevant to Health Maintenance Results * Pap Test (10/12/2023 12:00 AM EST) 10/12/2023 10/15/2023 9:0 6 AM EST Narrative SEE NARRATIVE - 10/23/2023 7:01 PM EST [address] [address] Enrollment Processor: Gunjan Wne MD [employer] Cytology Report FINAL DIAGNOSIS A. PAP SMEAR (SUREPATH) CE: SPECIMEN ADEQUACY: Satisfactory for evaluation; transformation zone present. INTERPRETATION: NEGATIVE FOR INTRAEPITHELIAL LESION OR MALIGNANCY. Electronically Signed Out By: SHELLEY Buckner(ASCP) SHELLEY Rod(ASCP) The Pap test is a screening test primarily for squamous cancers and precursors and has associated false-negative and false-positive results. New technologies such as liquid-based preparations may decrease but will not eliminate all false-negative results. Regular sampling and follow-up of unexplained clinical signs and symptoms are recommended to minimize false negative results. PROCEDURES/ADDENDA HPV Testing (Requested) Ordered Date: 10/15/2023 A. PAP SMEAR (SUREPATH) CE: Human Papilloma Virus Test NEGATIVE for high-risk Human Papilloma Virus types 16, 18, 45 and the Other high risk probe set (Includes 31, 33, 35, 39, 51, 52, 56, 58, 59, 66, 68) Note: Testing performed by [employer] [employer] HR-HPV analysis. Clinical correlation is advised. This HPV test was performed at [facility], [address] [place] [address]. This test has been FDA approved for [facility] cervical cytology specimens. The accuracy and precision of this test for all other specimen sources has been verified in the Cytopathology Laboratory of the [facility] and has not been cleared or approved by the U.S. Food and Drug Administration. Clinical correlation is advised. CLINICAL HISTORY Date of Last Menstrual Period: Not Provided Menstrual History: Post Menopausal Treatment History: Hormone Therapy Other Clinical Conditions: Screening Pap SPECIMEN SOURCE A: PAP SMEAR (SUREPATH) CE Patient Name: TITO MEDINA : 1990 (Age: 33) Sex: F Institution: [facility] Location: [facility] Date of Collection: 10/12/2023 Date of Reported: 10/23/2023 19:01 Results to: Ace Bailon MD, BS us Ace Bailon MD CYTOLOGY ORDERABLES Final Res ult SEE NARRATIVE from Last 3 Months or Most Recently Relevant to Health Maintenance Insurance [facility] CHOICE CHOICE CHOICE CHOICE Care Teams Assistant Boiler Operator Relationship Specialty Start Date End Date Tucker Haley, GLORIA [facility] [place] PCP - General Nurse Practitioner 10/12/23 Crystal Tian NP [address] [place] [id number] Historical LMR Provider 08/28/17 Krysten Ozuna DO [address] [place] [id number] Historical LMR Provider 08/28/17 Aisha Castañeda, [facility] [address] [place] [address] [email or web address] Historical LMR Provider 08/28/17 Vale Kaba MD [address] [place] [address] Historical LMR Provider 08/28/17 [place] [address] [email or web address] Historical LMR Provider 08/28/17 Hang Esparza MD [address] [place] [address] Historical LMR Provider 08/28/17 Gunjan Sigala MD [address] [place] [address] Historical LMR Provider 08/28/17 Additional Source Comments The information contained in this document represents components of the legal health record. It is not the complete legal health record.[facility]
--- NOTE | 2025-08-10 08:02 | A.OFFPC_ITS ---
Intake Visit Reasons: 3 week follow up Allergies prednisone Allergy (Mild, Verified 05/11/25 08:23) paranoid Tobacco use date assessed: 04/09/25 Dental Screening Dental Screen Date: 04/09/25 HPI 3 week follow up HPI Details History of Present Illness The patient is a 35-year-old female presenting with stress, depression, and anxiety related to her ongoing divorce. She reports feeling fairly stressed and somewhat depressed and anxious, but she is managing well overall. The patient is currently undergoing weekly therapy sessions and denies any suicidal or homicidal ideation. She is still residing in the same house with her spouse, from whom she is seeking a divorce, and they have initiated legal proceedings, which i recognize is emotionally challenging The patient has been with her spouse since high school, and they have two children together who are reportedly doing well. The children are expected to start therapy soon. The patient has a strong support system, including her family, and she communicates with her healthcare provider (myself) , intermittently, approximately every two weeks to ensure she is progressing positively. Review of Systems - Psychiatric: Reports stress, depressio n, and anxiety. Denies suicidal ideation or homicidal ideation. Plan 1. Stress Related To Divorce The patient is advised to continue with her weekly therapy sessions and maintain communication with her support system, including family and healthcare provider. She is encouraged to reach out via the portal for any concerns or questions. 2. Depression The patient should continue her current therapy regimen and monitor her symptoms closely. Regular follow-ups with her therapist and healthcare provider are recommended to ensure effective management of her depression. 3. Anxiety The patient is advised to continue therapy and utilize her support system to manage anxiety symptoms. She should maintain regular communication with her healthcare provider for ongoing assessment and support. Discussion Notes I discussed with the patient the importance of continuing her therapy sessions and utilizing her support system to manage her stress, depression, and anxiety. I advised her to contact me via the portal for any concerns or questions and emphasized the importance of regular follow-ups. Patient Instructions - Continue attending weekly therapy sess ions. - Maintain communication with family and healthcare provider. - Contact healthcare provider via the po rtal for any concerns or questions. [facility] Medical History Anxiety and depression Stenosis of left carotid artery Seizures Pannus, abdominal Surgical History (Reviewed 08/10/25 @ 08:02 by Tucker Haley [facility]) History of total hysterectomy History of section Family History Father No problems noted. Mother No problems noted. Brother No problems noted. Sister No problems noted. Daughter No problems noted. Son No problems noted. Maternal Grandmother Diabetes mellitus HTN (hypertension) Maternal Grandfather HTN (hypertension) Paternal Grandfather HTN (hypertension) Paternal Grandmother HTN (hypertension) Stroke Social History (Reviewed 08/10/25 @ 08:02 by LEEANNA WinterUNIV[facility]) Housing: House Alcohol intake: never Patient Tobacco Use Status: Never used Tobacco e-Cigarette/Vaping Use: Never Used Second Hand Smoke Exposure: No service: No Current occupational status: employed Current occupation: [employer] Current occupational exposures/hazards: Yes Cognitive needs: No Hearing needs: No Vision needs: Yes (rx glasses) Questionnaire Thrive Questionnaire Date Thrive assessed: 04/02/25 I am a: Patient What is your living situation today?: I have a steady place to live Within the past 12 months, did the food you bought not last and you didn't have the money to get more?: Never true Within the past 12 months, did you worry whether your food would run out before you got money to buy more?: Never true Do you have trouble paying for medicines?: No Do you have trouble getting transportation to medical appointments?: No Do you have trouble paying your heating and electricity bill?: No Do you have trouble taking care of your child, family member or friend?: No Do you have trouble with day-to-day activities such as bathing, preparing meals, shopping, managing finances, etc.?: No Are you currently unemployed and looking for a job?: No Are you interested in more education?: No THRIVE Score: 0 RADHA-7 AMB Questionnaire RADHA-7 Date RADHA - 7 assessed: 04/09/25 Source: Developed by Drs. Arpan Richmond, Alysha Mitchell, Iván Pinto and colleagues, with an educational bharathi from [employer]. Physical exam (Primary Care) Tobacco/Smoking Status: Tobacco use Status Tobacco use date assessed 04/09/25 05/11/25 08:33 Patient Tobacco Use Status Never used Tobacco 05/11/25 08:33 e-Cigarette/Vaping Use Never Used 05/11/25 08:33 Thrive Assessment: Date of Thrive Assessment Date Thrive assessed 04/02/25 05/11/25 08:33 Telehealth Telehealth Telehealth Platform: [employer] Location of provider rendering services: practice address Location of patient: address on file Patient Identification confirmed using: Name, : Yes Telehealth method: video Patient verbally consented to treatment: Yes Patient verbally consented to billing insurance company: Yes Patient informed of any privacy concerns related to visit: Yes Minutes spent on Phone/Video with Pt.: 18 Coding Level of Care Code Tele Est Pt Level 4 (80910) Diagnoses Anxiety and depression F41.9; F32.9 Stress due to family tension Z63.8 Divorce Z63.5 Assessment & Plan Assessment & Plan (1) Anxiety and depression: Code(s): F41.9 - Anxiety disorder, unspecified; F32.9 - Major depressive disorder, single episode, unspecified Category: Medical (2) Stress due to family tension: Code(s): Z63.8 - Other specified problems related to primary support group Category: Medical (3) Divorce: Code(s): Z63.5 - Disruption of family by separation and divorce Category: Social Hx Plan .
== END 2025-08-10 08:15 | disposition home or self-care (01) ==
LOC: HO.HMCC 06:40
PROVIDERS: PCP Nurse Practitioner Family; Visit Provider Nurse Practitioner Family
DX: F41.9 Anxiety disorder, unspecified (principal); F32.9 Major depressive disorder, single episode, unspecified; Z63.8 Other specified problems related to primary support group; Z63.5 Disruption of family by separation and divorce

== ENCOUNTER 2025-08-19 15:08 | Outpatient (AMB) | payer OTHER, SELFPAY ==
--- NOTE | 2025-08-19 15:11 | A.OFFPC_ITS ---
Vital Signs 08/19/25 15:12 Height 5 ft 5 in Weight 156 lb BMI 26.0 BP 122/84 Blood Pressure Location Lt brachial Position Sitting Respiration 16 Pulse 78 Pulse Source Pulse Oximeter Pulse Oximetry (%) 99 Oxygen Delivery Method Room Air Intake Visit Reasons: 4m follow up Kitchen Assistant Required: No Accompanied by: Self / Same As Patient Allergies prednisone Allergy (Mild, Verified 08/19/25 15:16) paranoid Tobacco use date assessed: 08/19/25 Dental Screening Dental Screen Date: 08/19/25 Did you have a dental visit in the last 12 months?: Yes Did you have a dental problem in the last 6 months where you did not have access to dental care?: No Was dental information given to patient?: Patient has dentist HPI 4m follow up HPI Details Chief Complaint The patient presents with emotional distress related to her ongoing divorce. History of Present Illness The patient is a 35-year-old female presenting with emotional distress related to her ongoing divorce. She denies any suicidal or homicidal ideation and reports having a supportive family and an effective therapist. The divorce proceedings are amicable, with both parties having legal representation. She denies chest pain and dyspnea, and her respiratory examination revealed clear lungs. 2 children are involved, currently doing well, according to pt. She is working on getting them a therapist through their t Social History - Family status: Going through a divorce , has a supportive family - Mental health: Engaged with a therapis t Health Maintenance Review of Systems - Psychiatric: Reports emotional distres s, denies suicidal and homicidal ideation - Cardiovascular: Denies chest pain - Respiratory: Denies dyspnea Physical Exam General: Cooperative, healthy appearing, comfortable, no acute distress and well developed Orientation: Patient oriented x3 Limitations: No limitations Head: Normal to inspection Ears: Hearing grossly normal bilaterally Nose: Normal external nose present Face and sinus: Normal facial exam Eyes: Appearance normal, both eyes and all related structures Neck: Normal visual inspection and Yes full ROM Respiratory: Normal respiratory effort and able to speak in complete sentences. Clear to auscultation bilaterally Cardiovascular: Regular rate and rhythm. Normal S1 and S2 GI: Normal to inspection. Soft to palpation and nontender Skin: No rashes or lesions noted Neuro: Patient oriented x3 Extremities: Normal to inspection Results plan 1. Emotional Distress Related To Divorce The patient is advised to continue attending therapy sessions to manage her emotional distress. Regular follow-up calls will be maintained to monitor her mental health status. Discussion Notes I discussed with the patient the importance of continuing her therapy sessions to help manage her emotional distress during the divorce process. I will maintain regular follow-up calls to ensure her mental well-being is monitored. Patient Instructions - Continue attending therapy sessions re ashlyn. - Expect follow-up calls every two weeks to check on your well-being. [facility] Medical History Anxiety and depression Stenosis of left carotid artery Seizures Pannus, abdominal Surgical History History of total hysterectomy History of section Family History Father No problems noted. Mother No problems noted. Brother No problems noted. Sister No problems noted. Daughter No problems noted. Son No problems noted. Maternal Grandmother Diabetes mellitus HTN (hypertension) Maternal Grandfather HTN (hypertension) Paternal Grandfather HTN (hypertension) Paternal Grandmother HTN (hypertension) Stroke Social History Housing: House Alcohol intake: never Patient Tobacco Use Status: Never used Tobacco e-Cigarette/Vaping Use: Never Used Second Hand Smoke Exposure: No service: No Current occupational status: employed Current occupation: [employer] Current occupational exposures/hazards: Yes Cognitive needs: No Hearing needs: No Vision needs: Yes (rx glasses) Questionnaire PHQ-9 Over the last 2 weeks, how often have you been bothered by any of the following problems? 1. Little interest or pleasure in doing things: more than half the days 2. Feeling down, depressed, or hopeless: several days 3. Trouble falling or staying asleep, or sleeping too much: nearly every day 4. Feeling tired or having little energy: several days 5. Poor appetite or overeating: several days 6. Feeling bad about yourself - or that you are a failure or have let yourself or your family down: several days 7. Trouble concentrating on things, such as reading the newspaper or watching television: several days 8. Moving or speaking so slowly that other people could have noticed. Or the opposite - being so fidgety or restless that you have been moving around a lot more than usual: not at all 9. Thoughts that you would be better off or of hurting yourself in some way: not at all Total score: 10 Depression Screening Interpretation: Positive (denies any si or hi) Depression Screening Follow-up: Existing condition and In treatment Depression Screening Done: Yes 56375 - PHQ-9 Billing: Yes Source: Developed by Drs. Arpan Richmond, Alysha Mitchell, Iván Pinto and colleagues, with an educational bharathi from [employer]. Thrive Questionnaire Date Thrive assessed: 04/02/25 I am a: Patient What is your living situation today?: I have a steady place to live Within the past 12 months, did the food you bought not last and you didn't have the money to get more?: Never true Within the past 12 months, did you worry whether your food would run out before you got money to buy more?: Never true Do you have trouble paying for medicines?: No Do you have trouble getting transportation to medical appointments?: No Do you have trouble paying your heating and electricity bill?: No Do you have trouble taking care of your child, family member or friend?: No Do you have trouble with day-to-day activities such as bathing, preparing meals, shopping, managing finances, etc.?: No Are you currently unemployed and looking for a job?: No Are you interested in more education?: No Please select the resources that you would like help with: None Currently or been in a relationship where the following occur: No concerns reported THRIVE Score: 0 RADHA-7 AMB Questionnaire RADHA-7 Date RADHA - 7 assessed: 08/19/25 Feeling nervous, anxious, or on edge: 0 = Not at all Not being able to stop or control worryin = Not at all Worrying too much about different things: 0 = Not at all Trouble relaxin = Not at all Being so restless that it is hard to sit still: 0 = Not at all Becoming easily annoyed or irritable: 0 = Not at all Feeling afraid as if something awful might happen: 0 = Not at all Total RADHA-7 score (0-4 normal; 5-9 mild; 10-14 moderate; 15-21 severe): 0 Source: Developed by Drs. Arpan Richmond, Alysha Mitchell, Iván Pinto and colleagues, with an educational bharathi from [employer]. RADHA-7 Assessment Billing RADHA-7 Assessment Tool: RADHA-7 Assessment 77085 Physical exam (Primary Care) Vital Signs: Last Vital Signs Pulse 78 08/19/25 15:12 Resp 16 08/19/25 15:12 BP 122/84 08/19/25 15:12 Pulse Ox 99 08/19/25 15:12 Oxygen Delivery Method Room Air 08/19/25 15:12 BMI result Body Mass Index 26.0 Tobacco/Smoking Status: Tobacco use Status Tobacco use date assessed 08/19/25 08/19/25 15:20 Patient Tobacco Use Status Never used Tobacco 08/19/25 15:20 e-Cigarette/Vaping Use Never Used 08/19/25 15:20 PHQ-9: PHQ-9 Score PHQ-9: Total score 10 08/19/25 15:20 Depression Screening Interpretation: Positive (denies any si or hi) Depression Screening Follow-up: Existing condition and In treatment Thrive Assessment: Date of Thrive Assessment Date Thrive assessed 04/02/25 08/19/25 15:20 Currently or been in a relationship where the following occur: No concerns reported Coding Level of Care Code Est Pt Level 3 (95831) Diagnoses Anxiety and depression F41.9; F32.9 couple sharing house Z63.5 Additional Codes RADHA-7 Assessment Billing - RADHA-7 Assessment Tool: RADHA-7 Assessment 27284 ([id number]) PHQ-9 - 33652 - PHQ-9 Billing: Yes ([id number]) Assessment & Plan Assessment & Plan (1) Anxiety and depression: Code(s): F41.9 - Anxiety disorder, unspecified; F32.9 - Major depressive disorder, single episode, unspecified Category: Medical (2) couple sharing house: Code(s): Z63.5 - Disruption of family by separation and divorce Category: Medical Plan .
[2025-08-19 15:12] VITALS: BP 122/84; PULSE 78; RESP 16; O2SAT 99; BMI 26.0
== END 2025-08-19 16:13 | disposition home or self-care (01) ==
LOC: HO.HMCC 15:09
PROVIDERS: PCP Nurse Practitioner Family; Visit Provider Nurse Practitioner Family
DX: F41.9 Anxiety disorder, unspecified (principal); F32.9 Major depressive disorder, single episode, unspecified; Z63.5 Disruption of family by separation and divorce

== ENCOUNTER → 2025-08-19 15:08 | Outpatient (BNVA) | payer OTHER, SELFPAY | PROVIDERS: PCP Nurse Practitioner Family; Visit Provider Nurse Practitioner Family | DX: F41.9 Anxiety disorder, unspecified (principal); F32.9 Major depressive disorder, single episode, unspecified; Z63.5 Disruption of family by separation and divorce | CPT/HCPCS: 96127 ==

== ENCOUNTER 2025-10-22 06:47 | Outpatient (AMB) | payer OTHER, SELFPAY ==
--- OUTSIDE RECORDS SUMMARY | 2025-10-22 06:51 | XMS_ITS | Clinical Summary ---
Author Organization [facility] Address [address] [place] [address] Phone Care Team Providers Care Control Room Agent Name Role Phone Crystal Tian NP Unavailable [phone] Krysten Ozuna DO Unavailable Aisha Castañeda RDCS Unavailable [email or web address] [place] Kaba MD Unavailable Randa Bridges MD Unavailable Hang Esparza MD Unavailable [phone] Gunjan Sigala MD Unavailable Tucker Haley RESEARCH DIETITIAN Primary Care Provider + Allergies Active Allergy [...] a complete copy of her records from [facility]. We will review them as they come [...] 12/14/2025 8:30 AM EST Office Visit [facility] Neurology [address] [place] [address] Hang Dougherty MD [address]nd [place] [address] Health Maintenance Due Date Last Done Comments [...] SEE NARRATIVE - 10/23/2023 7:01 PM EST [address] [address] Flight Engineer Instructor: Gunjan Wen MD [employer] TUNING ENGINEER Cytology Report FINAL DIAGNOSIS A. PAP SMEAR [...] 59, 66, 68) Note: Testing performed by [employer] HR-HPV analysis. Clinical correlation is advised. This HPV test was performed at [facility], [address] [place] [address]. This test has been FDA approved for SurePath cervical cytology specimens. The accuracy and precision of this test for all other specimen sources has been verified in the Cytopathology Laboratory of the [facility] and has not been cleared or approved by the U.S. Food and Drug Administration. Clinical correlation is advised. CLINICAL HISTORY Date of Last Menstrual Period: Not Provided Menstrual History: Post Menopausal Treatment History: Hormone Therapy Other Clinical Conditions: Screening Pap SPECIMEN SOURCE A: PAP SMEAR (SUREPATH) CE Patient Name: TITO MEDINA : 1990 (Age: 33) Sex: F Institution: [facility] Location: [facility] Date of Collection: 10/12/2023 Date of Reported: 10/23/2023 19:01 Results to: Ace Bailon MD, BS us Ace Bailon MD CYTOLOGY ORDERABLES Final Res ult SEE NARRATIVE from Last 3 Months or Most Recently Relevant to Health Maintenance Insurance [employer] [facility] CHOICE CHOICE CHOICE CHOICE Care Teams Control Room Agent Relationship Specialty Start Date End Date Tucker Haley, GLORIA [facility] [place] PCP - General Nurse Practitioner 10/12/23 Crystal Tian NP [address] [place] [id number] Historical LMR Provider 08/28/17 Krysten Ozuna DO [address] [place] [address] Historical LMR Provider 08/28/17 Aisha Castañeda, [facility] [address] [place] [address] [email or web address] Historical LMR Provider 08/28/17 [place] Kaba MD [address] [place] [address] Historical LMR Provider 08/28/17 [place] [address] [email or web address] Historical LMR Provider 08/28/17 Hang Esparza MD [address] [place] [address] Historical LMR Provider 08/28/17 Gunjan Sigala MD [address] [place] [address] [email or web address] Historical LMR Provider 08/28/17 Additional Source Comments The information contained in this document represents components of the legal health record. It is not the complete legal health record.[facility]
--- NOTE | 2025-10-22 07:50 | A.OFFPC_ITS ---
Intake Visit Reasons: 3 month follow up Allergies prednisone Allergy (Mild, Verified 08/19/25 15:16) paranoid Medication List - Last Reconciled 10/22/25 by KAYLEIGH WinterP- albuterol sulfate 90 mcg/actuation (Ventolin HFA) 1 inh inhalation QID PRN 10 days biotin (Hair, Skin and Nails (biotin)) mcg PO calcium carbonate 1,000 mg PO DAILY clotrimazole-betamethasone 1-0.05 % 1 appl topical BID 2 weeks epinephrine (EpiPen 2-Carter) 0.3 mg (0.3 mL) IM Q10M PRN 30 days estradiol 2 mg PO BID hydroxyzine HCl 10 mg PO BID PRN 30 days lamotrigine 200 mg PO BID 90 days mecobalamin (vitamin B12) mcg PO trazodone 25 mg (1/2 x 50 mg) PO DAILY 30 days Tobacco use date assessed: 08/19/25 Dental Screening Dental Screen Date: 08/19/25 HPI 3 month follow up HPI Details History of Present Illness The patient is a 35 year old female presenting for a follow-up visit for anxiety and depression. She has significant life stress due to an ongoing divorce, with upcoming legal or mediation appointments. Despite the stressors, she is reportedly managing fairly well, attending work regularly, and has a supportive family. She is currently cohabitating with her soon-to-be ex- and her two children. She sees a therapist regularly for her mental health. The patient reports some insomnia. She denies any suicidal or homicidal ideation. Review of Systems - Neurological: Reports insomnia. - Psychiatric: Reports anxiety and depre ssion. Denies suicidal or homicidal ideation. Plan 1. Anxiety And Depression The patient is managing her anxiety and depression well despite significant life stressors related to her ongoing divorce. She continues to engage in regular therapy and has strong family support. She denies suicidal or homicidal ideation. Will continue to monitor and follow up in the future. 2. Insomnia The patient reports experiencing some insomnia. A prescription for trazodone 25 mg will be started to help with sleep. Discussion Notes I discussed with the patient that she is managing her anxiety and depression well, considering the stress of her divorce. I acknowledged her regular attendance with her therapist and the benefit of her supportive family. We addressed her report of insomnia, and I have prescribed a very low dose of Trazodone at 25 mg to start. She denied any suicidal or homicidal thoughts. I informed her that I will be following up with her in the future. Patient Instructions - You will start taking a new medication , trazodone 25 mg, for sleep. - Continue to see your therapist on a re gular basis. - We will have a follow-up appointment i n the future to check on your progress. [facility] Medical History Anxiety and depression Stenosis of left carotid artery Seizures Pannus, abdominal Surgical History History of total hysterectomy History of section Family History Father No problems noted. Mother No problems noted. Brother No problems noted. Sister No problems noted. Daughter No problems noted. Son No problems noted. Maternal Grandmother Diabetes mellitus HTN (hypertension) Maternal Grandfather HTN (hypertension) Paternal Grandfather HTN (hypertension) Paternal Grandmother HTN (hypertension) Stroke Social History Housing: House Alcohol intake: never Patient Tobacco Use Status: Never used Tobacco e-Cigarette/Vaping Use: Never Used Second Hand Smoke Exposure: No service: No Current occupational status: employed Current occupation: [employer] Current occupational exposures/hazards: Yes Cognitive needs: No Hearing needs: No Vision needs: Yes (rx glasses) Questionnaire Thrive Questionnaire Date Thrive assessed: 04/02/25 I am a: Patient What is your living situation today?: I have a steady place to live Within the past 12 months, did the food you bought not last and you didn't have the money to get more?: Never true Within the past 12 months, did you worry whether your food would run out before you got money to buy more?: Never true Do you have trouble paying for medicines?: No Do you have trouble getting transportation to medical appointments?: No Do you have trouble paying your heating and electricity bill?: No Do you have trouble taking care of your child, family member or friend?: No Do you have trouble with day-to-day activities such as bathing, preparing meals, shopping, managing finances, etc.?: No Are you currently unemployed and looking for a job?: No Are you interested in more education?: No Please select the resources that you would like help with: None Currently or been in a relationship where the following occur: No concerns reported THRIVE Score: 0 RADHA-7 AMB Questionnaire RADHA-7 Date RADHA - 7 assessed: 08/19/25 Source: Developed by Drs. Arpan Richmond, Alysha Mitchell, Iván Pinto and colleagues, with an educational bharathi from [employer]. Physical exam (Primary Care) Tobacco/Smoking Status: Tobacco use Status Tobacco use date assessed 08/19/25 08/19/25 15:20 Patient Tobacco Use Status Never used Tobacco 08/19/25 15:20 e-Cigarette/Vaping Use Never Used 08/19/25 15:20 Thrive Assessment: Date of Thrive Assessment Date Thrive assessed 04/02/25 08/19/25 15:20 Currently or been in a relationship where the following occur: No concerns reported Telehealth Telehealth [facility]health [facility] Location of provider rendering services: practice address Location of patient: address on file Patient Identification confirmed using: Name, : Yes Telehealth method: video Patient verbally consented to treatment: Yes Patient verbally consented to billing insurance company: Yes Patient informed of any privacy concerns related to visit: Yes Minutes spent on Phone/Video with Pt.: 17 Coding Level of Care Code Tele Est Pt Level 3 (47540) Diagnoses Anxiety and depression F41.9; F32.9 Stress at work Z56.6 Stress due to family tension Z63.8 Insomnia G47.00 Assessment & Plan Assessment & Plan (1) Anxiety and depression: Code(s): F41.9 - Anxiety disorder, unspecified; F32.9 - Major depressive disorder, single episode, unspecified Category: Medical (2) Stress at work: Code(s): Z56.6 - Other physical and mental strain related to work Category: Social Hx (3) Stress due to family tension: Code(s): Z63.8 - Other specified problems related to primary support group Category: Medical (4) Insomnia: Code(s): G47.00 - Insomnia, unspecified Category: Medical Plan . Orders: Orders UA CC w/rflx Micro + Cult Today F32.9 - Major depressive disorder, single episode, unspecified, F41.9 - Anxiety disorder, unspecified, Z63.8 - Other specified problems related to primary support group Complete Blood Count Auto Diff Today F32.9 - Major depressive disorder, single episode, unspecified, F41.9 - Anxiety disorder, unspecified, Z63.8 - Other specified problems related to primary support group Comprehensive [place]. Panel Fast Today F32.9 - Major depressive disorder, single episode, unspecified, F41.9 - Anxiety disorder, unspecified, Z63.8 - Other specified problems related to primary support group TSH reflex Free T4 Today F32.9 - Major depressive disorder, single episode, unspecified, F41.9 - Anxiety disorder, unspecified, Z63.8 - Other specified problems related to primary support group Lipid Panel Today F32.9 - Major depressive disorder, single episode, unspecified, F41.9 - Anxiety disorder, unspecified, Z63.8 - Other specified problems related to primary support group Medications: New trazodone 25 mg (1/2 x 50 mg) PO DAILY 15 tabs 0RF 30 days
== END 2025-10-22 09:01 | disposition home or self-care (01) ==
LOC: HO.HMCC 06:48
PROVIDERS: PCP Nurse Practitioner Family; Visit Provider Nurse Practitioner Family
DX: G47.00 Insomnia, unspecified (principal); F41.9 Anxiety disorder, unspecified; F32.9 Major depressive disorder, single episode, unspecified; Z56.6 Other physical and mental strain related to work; Z63.8 Other specified problems related to primary support group

== ENCOUNTER 2025-10-24 08:52 | Outpatient (REF) | payer OTHER, SELFPAY ==
--- OUTSIDE RECORDS SUMMARY | 2025-10-24 08:58 | XMS_ITS | Clinical Summary ---
Author Organization [facility] Address [address] [place] [address] Phone Care Team Providers Care Vamp Throater Name Role Phone Crystal Tian NP Unavailable [phone] Krysten Ozuna DO Unavailable Aisha Castañeda RDCS Unavailable [email or web address] [place] Kaba MD Unavailable Randa Bridges MD Unavailable Hang Esparza MD Unavailable [phone] Gunjan Sigala MD Unavailable Tucker Haley WHOLESALE MANAGER Primary Care Provider + Allergies Active Allergy [...] a complete copy of her records from [facility]. We will review them as they [...] 12/14/2025 8:30 AM EST Office Visit [facility] Neurology [address] [place] [address] Hang Dougherty MD [address] [place] [address] Health Maintenance Due Date Last Done Comments [...] NARRATIVE - 10/23/2023 7:01 PM EST [address] [address] Circular Clerk: Gunjan Wen MD VIDEO GAME DEVELOPER Cytology Report FINAL DIAGNOSIS A. PAP SMEAR [...] 59, 66, 68) Note: Testing performed by [employer] HR-HPV analysis. Clinical correlation is advised. This HPV test was performed at [facility], [address] [place] [address]. This test has been FDA approved for SurePath cervical cytology specimens. The accuracy and precision of this test for all other specimen sources has been verified in the Cytopathology Laboratory of the [facility] and has not been cleared or approved by the U.S. Food and Drug Administration. Clinical correlation is advised. CLINICAL HISTORY Date of Last Menstrual Period: Not Provided Menstrual History: Post Menopausal Treatment History: Hormone Therapy Other Clinical Conditions: Screening Pap SPECIMEN SOURCE A: PAP SMEAR (SUREPATH) CE Patient Name: TITO MEDINA : 1990 (Age: 33) Sex: F Institution: [facility] Location: [facility] Date of Collection: 10/12/2023 Date of Reported: 10/23/2023 19:01 Results to: Ace Bailon MD, BS us Ace Bailon MD CYTOLOGY ORDERABLES Final Res ult SEE NARRATIVE from Last 3 Months or Most Recently Relevant to Health Maintenance Insurance [employer] [facility] CHOICE CHOICE CHOICE CHOICE Care Teams Vamp Throater Relationship Specialty Start Date End Date Tucker Haley, GLORIA [facility] [place] PCP - General Nurse Practitioner 10/12/23 Crystal Tian NP [address] [place] [address] Historical LMR Provider 08/28/17 Krysten Ozuna DO [address] [place] [address] Historical LMR Provider 08/28/17 Aisha Castañeda, [facility] [address] [place] [address] [email or web address] Historical LMR Provider 08/28/17 [place] Kaba MD [address] [place] [address] Historical LMR Provider 08/28/17 [place] [address] [email or web address] Historical LMR Provider 08/28/17 Hang Esparza MD [address] [place] [address] Historical LMR Provider 08/28/17 Gunjan Sigala MD [address] [place] [address] [email or web address] Historical LMR Provider 08/28/17 Additional Source Comments The information contained in this document represents components of the legal health record. It is not the complete legal health record.[facility]
[2025-10-24 11:35] LABS: MANUAL DIFF FLAG NO
[2025-10-24 11:46] LABS: Hematocrit 41.6 % (37.0-47.0); Hemoglobin 13.8 g/dl (12.0-16.0); Imm Gran Abs Auto 0.01 X10*3/uL (0.00-0.03); Imm Gran Pct Auto 0.2 % (0.0-0.4); Lymphocytes Absolute Auto 2.0 X10*3/uL (1.2-4.9); Mean Corpuscular HGB Conc 33.2 g/dl (31.0-35.0); Mean Corpuscular Hemoglobin 28.9 pg (27.0-33.0); Mean Corpuscular Volume 87.0 fL (80.0-98.0); NRBC Abs Auto 0.000 X10*3/uL (0.0-0.012); NRBC Pct Auto 0.0 /100WBC (0.0-0.2); Platelet Count 281 X10*3/uL (160-400); Red Blood Count 4.78 X10*6/uL (4.20-5.50); White Blood Count 4.8 X10*3/uL (4.8-10.8)
[2025-10-24 12:08] LABS: Alanine Aminotransferase 14 U/L (0-31); Albumin Level 4.1 g/dL (3.5-5.0); Alkaline Phosphatase 62 U/L (39-117); Anion Gap 11 (12-20); Aspartate Amino Transferase 18 U/L (5-31); Blood Urea Nitrogen 9 mg/dL (9-16); Calcium 9.4 mg/dL (8.4-10.2); Carbon Dioxide 26 mmol/L (22-29); Chloride 107 mmol/L (96-108); Cholesterol 247 mg/dL (<200); Estimated Glomerular Filt Rate > 60; HDL Cholesterol 73 mg/dL (>40); Potassium 4.7 mmol/L (3.3-5.1); Sodium 139 mmol/L (135-145); Total Protein 6.9 g/dL (6.5-8.0); Triglycerides 152 mg/dL (<150)
== END 2025-10-24 08:53 | disposition home or self-care (01) ==
LOC: HO.HMGCLDS 08:52
PROVIDERS: PCP Nurse Practitioner Family; Visit Provider Nurse Practitioner Family
DX: F41.9 Anxiety disorder, unspecified (principal); F32.9 Major depressive disorder, single episode, unspecified; Z63.8 Other specified problems related to primary support group; Z13.6 Encounter for screening for cardiovascular disorders
CPT/HCPCS: 36415; 80053; 80061; 84443; 85025